=== PATIENT | female | born 2000 | race Two or more races ===

== ENCOUNTER 2023-01-20 13:30 | Outpatient (OUT) | payer OTHER, SELFPAY ==
--- NOTE | 2023-01-20 14:16 | XR_ITS ---
[address] [address] Patient Name: CARRIE JAMA MRN: [id number] date: 2000 Sex: F Assigned Patient Location: [facility] Current Patient Location: [facility] Accession/Order Number: [id number] Exam Date: 01/20/2023 14:20 Report Date: 01/20/2023 15:08 At the request of: ARIADNA BACON Procedure: XR chest 2V EXAM: XR chest 2V HISTORY: E CIGARETTE USS COMPARISON: 04/04/2020 TECHNIQUE: Upright PA and lateral chest x-ray FINDINGS: The heart is not enlarged and the vasculature is not distended. No acute infiltrate, effusion or pneumothorax is identified. The osseous structures are grossly intact. IMPRESSION: No acute infiltrate or evidence of cardiac decompensation. The overall appearance of the chest has not changed significantly. Electronically authenticated by: PATO HOPSON Date: 01/20/2023 15:08
--- NOTE | 2023-01-20 14:28 | P.GSHP_ITS ---
History of Present Illness History of Present Illness Chief complaint: REQUEST FOR STERILIZATION Narrative: Patient presents for preadmission testing accompanied by her son. The patient states she does not want anymore children and has requested sterilization. She denies any complaints today; she has no abdominal pain, nausea, vomiting, fever, cough, shortness of breath, or any other complaints. Review of Systems ROS Narrative REVIEW OF SYSTEMS: Negative except as stated in HPI, ten or more systems reviewed. Constitutional: No fever , chills, weakness ENT: No sore throat or epistaxis Cardiovascular: No edema, chest pain, palpitations, or activity intolerance Respiratory: No shortness of breath, cough, or wheezing Musculoskeletal: No joint pain or swelling Gastrointestinal: No abdominal pain, constipation, diarrhea, or vomiting Genitourinary: No dysuria or hematuria Neurological: No numbness, tingling, weakness, or headache Psychiatric: No mood changes PFSH PFS Medical History (Updated 01/20/23 @ 14:30 by Olivia Duque NP) Family History (Updated 01/20/23 @ 14:09 by Noelle Aponte) Other Asthma Family history of bleeding or clotting disorder Family history of diabetes mellitus Family history of heart disease Family history of stroke Hypercholesterolemia Social History (Updated 01/20/23 @ 14:05 by Noelle Aponte) Within the past year, how often did you have a drink containing alcohol: 2-4 times a month Within the past year, how many standard drinks containing alcohol did you have on a typical day: 1 or 2 Total score: 0 Score interpretation: A score less than 3 is consistent with normal alcohol consumption. 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 [employer] Highest level of school completed/degree received: high school graduate Meds Home Medications and Allergies Home Medications Medication Instructions Recorded Confirmed Type Bacillus coagulans 250 million cell PO 01/20/23 History cell chewable tablet (Digestive Advantage Probiotic Gummy) PNV 153-FA 400 mcg-om3 35 mg-dha tab PO 01/20/23 History 25 mg-epa 5 mg-fish oil chew tablet ( Gummies) Allergies Allergy/AdvReac Type Severity Reaction Status Date / Time No Known Drug Allergies Allergy Verified 01/20/23 13:58 Exam Narrative Exam Narrative: Constitutional: Awake, alert, comfortable, well-appearing, nontoxic, interactive, vital signs as charted Head: Normocephalic, atraumatic Eyes: Conjunctiva and lids normal to inspection, pupils normal ENT: Tympanic membranes pearly davidson, nonerythematous, noninjected, naris patent, posterior oropharynx clear, oral mucosa moist Neck: Supple, normal appearance, normal range of motion, no meningeal signs, no lymphadenopathy Respiratory: No respiratory distress, breath sounds clear Cardiovascular: Regular rate and rhythm, strong and regular heart tones Abdomen: Nontender, normal bowel sounds, soft, no CVA tenderness Musculoskeletal: Normal gait, no swelling or edema Skin: No rashes or induration, no lesions, only visible skin inspected Neuro: No neurological deficits, normal sensation Psychiatric: Oriented ?3, normal affect Assessment and Plan Assessment and Plan (1) Request for sterilization: Plan Bilateral laparoscopic salpingectomy scheduled with Dr. Holguin 01/24/2023.
== END 2023-01-20 13:31 ==
DX: Z01.810 Encounter for preprocedural cardiovascular examination (principal); Z30.2 Encounter for sterilization
CPT/HCPCS: 71046; G0463

== ENCOUNTER 2023-01-24 09:03 | Day surgery (SDC) | payer OTHER, SELFPAY ==
[2023-01-20 14:05] VITALS: BP 108/63; PULSE 76; RESP 16; TEMP 36.5; O2SAT 98; BMI 35.5
[2023-01-24] VITALS (13 sets, daily range): BP systolic 107–132; BP diastolic 54–99; PULSE 69–94; RESP 16–20; TEMP 36.1–36.3; O2SAT 99–100; BMI 35.5
[2023-01-24 09:13] LABS: Basophils Absolute Auto 0.1 10^3/uL (0.0-0.1); Basophils Percent Auto 0.7 % (0.2-2.0); Eosinophils Absolute Auto 0.2 10^3/uL (0.0-0.7); Eosinophils Percent Auto 2.2 % (0.9-7.0); Immature Granulocytes Abs Auto 0.02 10^3/uL (0.00-0.03); Immature Granulocytes Pct Auto 0.3 % (0.0-0.5); Lymphocytes Absolute Auto 2.7 10^3/uL (1.2-3.8); Lymphocytes Percent Auto 35.9 % (20.5-60.0); Mean Corpuscular Hemoglobin 19.7 pg (26.7-34.0); Mean Platelet Volume 9.1 fL (9.5-13.5); Monocytes Absolute Auto 0.4 10^3/uL (0.3-0.8); Neutrophils Absolute Auto 4.2 10^3/uL (1.4-6.5); Neutrophils Percent Auto 55.9 % (43.0-75.0); Platelet Count 563 10^3/uL (150-450); Red Blood Count 4.56 10^6/uL (4.20-5.40); Red Cell Distribution Width 19.6 % (11.0-15.0); White Blood Count 7.6 10^3/uL (4.0-11.0)
[2023-01-24 09:34] LABS: HCG Quantitative <1 mIU/mL
[2023-01-24] MEDS: LACTATED RINGER'S SOLUTION 1,000 ML 50 ML IV (09:46)
[2023-01-24] MEDS: MEPERIDINE HCL/PF 25 MG/ML VIAL IVP (13:06)
--- NOTE | 2023-01-24 13:36 | OP_ITS ---
OPERATION DATE: ??01/24/2023 PROCEDURE:? Robotic assisted laparoscopic bilateral salpingectomy. PREOPERATIVE DIAGNOSIS:? Desires permanent sterilization. POSTOPERATIVE DIAGNOSIS:? Desire permanent sterilization. ANESTHESIA:? General. SURGEON:? Aidan Holguin D.O. APPLICATION INTEGRATION ARCHITECT:? BAKARI Estrada URINE OUTPUT:? Yellow and clear. FINDINGS:? Normal appearing ovaries, uterus and tubes.? However, please note that uterus was slightly enlarged due to previous delivery. SPECIMEN:? Bilateral tubes. The patient was taken back to the OR where she was prepped and draped in the normal sterile fashion after being placed in the dorsal lithotomy position, after being placed under general anesthesia without difficulty. A wet sponge stick was placed into the patient's vagina. Attention was then turned to the patient's abdomen, where a scalpel was used to make a small infraumbilical incision. The S retractors were then used to dissect the underlying layers until the fascia could be seen. The fascia was then grasped with Raquel clamps and tented up. A knife was then used to make a small incision to the fascia. The muscle was identified, at that time two sutures of #0 Vicryl on a GI needle was then used and placed through the fascia. The peritoneum was then identified and entered bluntly. The 10-4 Lilibeth was then placed into the patient's abdomen. This was confirmed with direct visualization of the bowel, using the laparoscope. The patient's abdomen was then insufflated using approximately 4 liters of CO2 gas. Survey of the patient's abdomen demonstrated normal appearing ovaries, uterus and tubes. A second and third robotic lateral ports were placed, which 5 mm in size, was then placed laterally after incision was made in the skin under direct visualization. The robotic arms were then engaged. The patient's tube on the patient's right side was identified. The tube was then tented up using a grasper. The LigaSure was used to transect and coagulate the mesosalpinx from the fimbriated end to the insertion at the uterus; the tube was amputated and removed in its entirety.? Excellent hemostasis was noted.? This was performed on the contralateral side as well. The lateral ports were then removed under direct visualization with excellent hemostasis. The abdomen was desufflated. All instruments were removed from the patient's abdomen. The fascia was closed using the #0 Vicryl on GI needle. The skin was closed using 4-0 Vicryl subcuticularly. All instruments were removed from the patient's vagina as well. The patient was taken out of the dorsal lithotomy position and placed in the supine position and taken to recovery in stable condition. Sponge, lap and needle counts were correct x2.? MTDD
[2023-01-24] MEDS: LACTATED RINGER'S SOLUTION 1,000 ML 75 ML IV (13:42)
== END 2023-01-24 14:14 | disposition home or self-care (01) ==
PROVIDERS: Visit Provider Obstetrics & Gynecology
PROC: (CPT 58661; principal; 2023-01-24 10:20)
DX: Z30.2 Encounter for sterilization (principal); N85.2 Hypertrophy of uterus; F17.290 Nicotine dependence, other tobacco product, uncomplicated
CPT/HCPCS: 58661; 36415; 84702; 85025; 88302; J2704

== ENCOUNTER 2023-02-26 20:26 | Emergency (ER) | payer OTHER, SELFPAY ==
[2023-02-26 20:30] VITALS: BP 129/72; PULSE 85; RESP 16; TEMP 36.4; O2SAT 99; BMI 35.1
--- NOTE | 2023-02-26 20:40 | PC.NURSE ---
pt states one week ago her left ear began to feel muffled and has continued to get worse, now feels like she is unable to hear completely out of ear. yesterday right ear also began to feel muffled. has tried OTC ear drops without relief. denies any pain to ears just states they feel muffled . denies any drainage from ears. denies fevers at home.
--- NOTE | 2023-02-26 20:41 | ED_ITS ---
HPI - Ear Problem General Chief complaint: Ear Stated complaint: EARACHE Time Seen by Provider: 02/26/23 20:38 History of Present Illness HPI Narrative: 23 year old female presents to the ED for bilateral ear discomfort, L>R. Reports decreased hearing from her left ear as well. Denies fever, chills, injury, drainage. Denies sinus congestion drainage, sore throat. Rates her pain 4/10. Denies chance of . MD Complaint: Reports ear pain and decreased hearing; Denies ear discharge or foreign body Location: bilateral Related Data Home Medications Medication Instructions Recorded Confirmed Bacillus coagulans 250 million cell PO 01/20/23 cell chewable tablet (Digestive Advantage Probiotic Gummy) Previous Rx's Medication Instructions Recorded amoxicillin 500 mg capsule 500 mg PO Q12H 10 days #20 caps 02/26/23 carbamide peroxide 6.5 % ear drops 5 drp otic (ear) BID 4 days #15 mL 02/26/23 (Debrox) Allergies Allergy/AdvReac Type Severity Reaction Status Date / Time No Known Drug Allergies Allergy Verified 02/26/23 20:35 Review of Systems ROS Constitutional Denies: fever or chills Ears, nose, mouth, and throat Reports: ear pain and change in hearing; Denies: throat pain, neck pain, ear discharge, tinnitus, vertigo, nasal discharge or nasal congestion Cardiovascular Denies: chest pain Respiratory Denies: shortness of breath or cough PFSH PFSH Medical History (Updated 02/26/23 @ 20:45 by Barbara Pope) Family History (Updated 01/20/23 @ 14:09 by Noelle Clay) Other Asthma Family history of bleeding or clotting disorder Family history of diabetes mellitus Family history of heart disease Family history of stroke Hypercholesterolemia Social History (Updated 01/20/23 @ 14:05 by Noelle Clay) Within the past year, how often did you have a drink containing alcohol: 2-4 times a month Within the past year, how many standard drinks containing alcohol did you have on a typical day: 1 or 2 Total score: 0 Score interpretation: A score less than 3 is consistent with normal alcohol consumption. 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 Highest level of school completed/degree received: high school graduate Exam Constitutional Vital Signs, click to edit/add: Last Vital Signs Temp 97.5 F L 02/26/23 20:30 Pulse 85 02/26/23 20:30 Resp 16 02/26/23 20:30 BP 129/72 H 02/26/23 20:30 Pulse Ox 99 02/26/23 20:30 O2 Del Method Room Air 02/26/23 20:30 Common normals: no apparent distress and oriented x3 General appearance: cooperative; not in distress and not ill appearing [facility] Common normals: normocephalic Head and scalp: normal to inspection Face and sinus: face symmetric Nose: external nose normal External ear: external ears normal External auditory canal: other (Cerumen increased bilaterally. No swelling, drainage noted to canals.) Tympanic membrane: TM normal on the right and TM normal on the left (Long thematous, intact) Throat: posterior oropharynx normal Chest Chest: symmetrical chest wall rise Respiratory Common normals: normal respiratory effort Effort & inspection: able to speak in complete sentences and symmetric chest movement Cardio Common normals: regular rate Neuro Common normals: oriented x3 and CN's II-XII intact bilaterally Sensorium/orientation: awake and alert Course Vital Signs Vital signs: Vital Signs Temperature 97.5 F L 02/26/23 20:30 Pulse Rate 85 02/26/23 20:30 Respiratory Rate 16 02/26/23 20:30 Blood Pressure 129/72 H 02/26/23 20:30 Pulse Oximetry 99 02/26/23 20:30 Oxygen Delivery Method Room Air 02/26/23 20:30 Temperature 97.5 F L 02/26/23 20:30 Pulse Rate 85 02/26/23 20:30 Respiratory Rate 16 02/26/23 20:30 Blood Pressure 129/72 H 02/26/23 20:30 Pulse Oximetry 99 02/26/23 20:30 Oxygen Delivery Method Room Air 02/26/23 20:30 Medical Decision Making MDM Narrative Medical decision making narrative: Increased cerumen was noted bilaterally. Left TM was erythematous. Prescriptions were provided for amoxicillin and debrox. Follow up with pcp for a recheck, further evaluation and treatment. Medical Records Medical records reviewed: Yes I reviewed the patient's medical records Lab Data Lab results reviewed: Yes I reviewed the patient's lab results Discharge Plan Discharge Chief Complaint: Ear Clinical Impression: Cerumen impaction, Otitis media Patient Disposition: Home, Self-Care Time of Disposition Decision: 20:43 Condition: Good Mode of Transportation: Private Vehicle Prescriptions / Home Meds: New Debrox 6.5 % drops 5 drp otic (ear) BID 4 Days Qty: 15 0RF amoxicillin 500 mg capsule 500 mg PO Q12H 10 Days Qty: 20 0RF No Action Digestive Advantage Prob Gummy 250 million cell tablet,chewable PO Instructions: Carbamide Peroxide (Into the ear), Ear Infection (ED) Stand Alone Forms: Portal Instructions Referrals: Physician,Non-Staff, MD [Primary Care Provider] - 1 week Discharge Date/Time: 02/26/23 20:55
== END 2023-02-26 20:55 | disposition home or self-care (01) ==
PROVIDERS: Emergency Provider Emergency Medicine
DX: H66.93 Otitis media, unspecified, bilateral (principal); H61.23 Impacted cerumen, bilateral; F17.290 Nicotine dependence, other tobacco product, uncomplicated
CPT/HCPCS: 99282

== ENCOUNTER 2023-10-07 20:54 | Outpatient (REF) | payer OTHER, SELFPAY ==
[2023-10-11 16:10] LABS: Age Gdln ACOG Testing Note (.); IGP, rfx Aptima HPV ASCU Note (.)
== END 2023-10-07 20:55 | disposition home or self-care (01) ==
LOC: LAB 20:54
PROVIDERS: Visit Provider Physician Assistant
DX: Z01.419 Encounter for gynecological examination (general) (routine) without abnormal findings (principal)
CPT/HCPCS: G0145

== ENCOUNTER 2024-02-14 21:53 | Emergency (ER) | payer OTHER, SELFPAY ==
[2024-02-14] VITALS (10 sets, daily range): BP systolic 96–116; BP diastolic 59–65; PULSE 60; TEMP 36.6; O2SAT 86–100; BMI 33.5
--- OUTSIDE RECORDS SUMMARY | 2024-02-14 22:00 | XMS_ITS | CCD ---
Author Organization [facility] Care Team Providers Care Party Plan Sales Host/Hostess Name Role Phone Leslee Braswell Unavailable GayatriMachellemedardo Unavailable JORDI ., DR ROSENTHAL Admitting Unavailable FRENCH, LELSEE Primary Care Unavailable JORDI ., DR ROSENTHAL Attending Unavailable JORDI ., DR ROSENTHAL Consulting Unavailable MANISH ., JORGE Admitting Unavailable FRENCH, LESLEE Primary Care Unavailable MANISH ., JORGE Attending Unavailable MANISH ., JORGE Consulting Unavailable FRENCH, LESLEE Primary Care Unavailable JORDI ., DR ROSENTHAL Admitting Unavailable JORDI ., DR ROSENTHAL Attending Unavailable JORDI ., DR ROSENTHAL Consulting Unavailable JODRI ., DR ROSENTHAL Attending Unavailable JORDI ., DR ROSENTHAL Consulting Unavailable JORDI ., DR ROSENTHAL Admitting Unavailable FRENCH, LESLEE Primary Care Unavailable ZIEBER, DR ALAN Ospina Consulting Unavailable JORDI ., DR ROSENTHAL Attending Unavailable JORDI ., DR ROSENTHAL Consulting Unavailable JORDI ., DR ROSENTHAL Admitting Unavailable FRENCH, LESLEE Primary Care Unavailable JORDI ., DR ROSENTHAL Admitting Unavailable JORDI ., DR ROSENTHAL Attending Unavailable FRENCH, LESLEE Primary Care Unavailable JORDI ., DR ROSENTHAL Attending Unavailable JORDI ., DR ROSENTHAL Admitting Unavailable FRENCH, LESLEE Primary Care Unavailable JORDI ., DR ROSENTHAL Consulting Unavailable PHILLIP CEDENO Admitting Unavailable FRENCH, LESLEE Primary Care Unavailable PHILLIP CEDENO Attending Unavailable PHILLIP CEDENO Consulting Unavailable JORDI ., DR ROSENTHAL Admitting Unavailable JORDI ., DR ROSENTHAL Attending Unavailable JORDI ., DR ROSENTHAL Consulting Unavailable FRENCH, LESLEE Primary Care Unavailable HARSHA MARVIN Consulting Unavailable ABIGAIL GARAY Consulting Unavailable JORDI ., DR ROSENTHAL Procedure Practitioner Unavail able JORDI ., DR ROSENTHAL Attending Unavailable JORDI ., DR ROSENTHAL Ad[facility] JORDI ., DR ROSENTHAL Consulting Unavailable JORDI ., DR ROSENTHAL Admitting Unavailable JORDI ., DR ROSENTHAL Attending [facility] Unavailable JORDI ., DR ROSENTHAL Consulting Unavailable JORDI ., DR ROSENTHAL Admitting Unavailable [facility] Primary Care Unavailable JORDI ., DR ROSENTHAL Attending Unavailable JORDI ., DR ROSENTHAL Consulting Unavailable ZIEBER, DR ALAN Ospina Consulting Unavailable JORDI ., DR ROSENTHAL Admitting [facility]available JORDI ., DR ROSENTHAL Attending Unavailable JORDI ., DR ROSENTHAL Consulting Unavailable ZIEBER, DR ALAN Ospina Consulting Unavailable SABI Crocker Attending Provider Erin Crocker Unavailable Erin Crocker Admitting Unavailable Erin Crocker Attending Unavailable ALIZA GALLAGHER Referring Unavail able FRANCISCA PANDA Primary Care Unavailable Medications Current Medications Medication Drug Class(es) Dates Sig (Normalized) Sig (Original) ondansetron 4 mg oral tablet (5 sources) Serotonin-3 Receptor Antagonist Start: 02-05-2023 take 1 tablet by mouth three times daily as needed Zofran 4 MG 1 tablet Orally tid prn Jan, Active Zofran Not-Boy g Zofran Active triamcinolone acetonide 1 mg/ml topical cream (1 source) Corticosteroid Start: 04-06-2022 Triamcinolone Acetonide 0.1 % 1 application to affected area Externally Twice a day for 7 days Mar, Active Completed/Discontinued Medications Medication Drug Class(es) Dates Sig (Normalized) Sig (Original) ferrous sulfate (6 sources) Start: 06-21-2021 take 1 tablet by mouth every twenty-four hours Ferrous Sulfate 325 (65 Fe) MG 1 tablet Orally Once a day for 30 day(s) Jun, Not-Taking Start: 06-21-2021 take 1 tablet by lexii th once daily Ferrous Sulfate 325 (65 Fe) MG 1 tablet Orally Once a day for 30 day(s) Jun, Not-Taking Magnesium Oxide (3 sources) Magnesium Oxide Not-Taking Magnesium Oxide Active tobramycin 3 mg/ml ophthalmic solution (3 sources) Aminoglycoside Antibacterial Start: 06-06-2022 take 2 drop(s) into the eye(s) three times daily Tobramycin 0.3 % 2 drop into affected eye Ophthalmic tid for 5 days May, Not-Taking Problems Active Problems Problem Classification Problem Date Documented Date Episodic/Chronic Contraceptive and procreative management (1 source) Tubal ligation status; Translations: [Tubal ligation status] Onset: 01-16-2024 Episodic Deficiency and other anemia (6 sources) Microcytic anemia; Translations: [Iron deficiency anemia, unspecified] Episodic Headache; including migraine (1 source) Headache; including migraine; Translations: [Headache, unspecified] Onset: 01-16-2024 Immunizations and screening for infectious disease (6 sources) Contact with and (suspected) exposure to other viral communicable diseases; Translations: [Encounter for screening for human papillomavirus (HPV)] Onset: 09-05-2022 Episodic Malaise and fatigue (1 source) Chronic fatigue, unspecified; Translations: [Chronic fatigue, unspecified] Onset: 01-16-2024 Chronic Menstrual disorders (5 sources) Irregular menstruation, unspecified; Translations: [Excessive and frequent menstruation with irregular cycle] Onset: 05-13-2022 Chronic Nausea and vomiting (5 sources) Nausea with vomiting, unspecified; Translations: [Nausea] Onset: 05-30-2022 Episodic OB-related trauma to perineum and vulva (3 sources) First degree perineal laceration during delivery; Translations: [FIRST DEG PERINEAL LAC DUR DELIV] Onset: 12-02-2022 Episodic Other aftercare (1 source) Other group home (current) drug therapy; Translations: [OTH CERAMIC DESIGN ENGINEER CURRENT DRUG THERAPY] Onset: 12-12-2022 Episodic Other nutritional; endocrine; and metabolic disorders (1 source) Other obesity due to excess calories; Translations: [Other obesity due to excess calories] Onset: 01-16-2024 Chronic Other nutritional; endocrine; and metabolic disorders (1 source) Body mass index (BMI) 34.0-34.9, adult; Translations: [Body mass index (BMI) 34.0-34.9, adult] Onset: 01-16-2024 Chronic Other and delivery including normal (18 sources) Single live ; Translations: [ state, incidental] Onset: 04-26-2022 Episodic Other screening for suspected conditions (not mental disorders or infectious disease) (16 sources) Encounter for screening for Streptococcus B; Translations: [Encounter for screening for malignant neoplasm of cervix] Onset: 05-13-2022 Episodic Other upper respiratory infections (1 source) Acute upper respiratory infection, unspecified Episodic Residual codes; unclassified (1 source) 39 weeks gestation of ; Translations: [39 WEEKS GESTATION OF ] Onset: 12-12-2022 Episodic Viral infection (1 source) Viral infection, unspecified Episodic Past or Other Problems Problem Classification Problem Date Documented Date Episodic/Chronic Allergic reactions (1 source) Urticaria, unspecified Onset: 04-06-2022 Resolved: 04-06-2022 Episodic Deficiency and other anemia (1 source) Iron deficiency anemia, unspecified Onset: 06-21-2021 Resolved: 06-21-2021 Episodic Genitourinary symptoms and ill-defined conditions (4 sources) Hematuria, unspecified; Translations: [HEMATURIA UNSPECIFIED] Onset: 07-08-2022 Episodic Other aftercare (1 source) Encounter for follow-up examination after completed treatment for conditions other than malignant neoplasm Onset: 06-21-2021 Resolved: 06-21-2021 Episodic Other complications of (1 source) Unspecified infection of urinary tract in , first trimester; Translations: [UNS INF URINARY TRACT PREG 1ST TRI] Onset: 06-03-2022 Episodic Other female genital disorders (1 source) Other specified noninflammatory disorders of vagina; Translations: [OTH SPEC NONINFLAMMATORY D/O VAGINA] Onset: 09-05-2022 Episodic Residual codes; unclassified (1 source) 12 weeks gestation of ; Translations: [12 WEEKS GESTATION OF ] Onset: 06-03-2022 Episodic Unclassified (1 source) Contact with and (suspected) exposure to covid-19 Z20.822 Urinary tract infections (1 source) Urinary tract infection, site not specified; Translations: [UTI SITE NOT SPECIFIED] Onset: 06-03-2022 Episodic Results Test Name Value Interpretation Reference Range Facility CBC AND AUTO DIFFon 06-07-20 24 ABSOLUTE BASOPHIL 0.0 X10E9/L Normal 0.0-0.2 [facility] Comment on above: Performed By: #### C BCA, TSHR, CMP, 16641-8, 4-8, 9, 70837-9 #### [facility] ([id number]) [address], [address] [place] [address] ABSOLUTE NEUTROPHIL 3.6 X10E9/L Normal 1.5-6.6 [facility] Comment on above: Performed By: #### C BCA, TSHR, CMP, 66593-2, 8, 2132-04, 45241-9 #### [facility] ([id number]) [address], [address] [place] [address] Basophils/100 WBC (Bld) 0.6 % Normal [facility] Comment on above: Performed By: #### C BCA, TSHR, CMP, 19989-6, 8, 2132-04, 29012-4 #### [facility] ([id number]) [address], [facility] [address] [place] [address] Eosinophils (Bld) [#/Vol] 0.1 10*3/uL Normal 0.0-0.4 [facility] Comment on above: Performed By: #### C BCA, TSHR, CMP, 29678-8, 8, 2132-04, 52939-4 #### [facility] ([id number]) [address], [facility] [address] [place] [address] Eosinophils/100 WBC (Bld) 1.2 % Normal [facility] Comment on above: Performed By: #### C BCA, TSHR, CMP, 98055-1, 2283-8, 9, 47375-6 #### [facility] ([id number]) [address], [facility] [address] [place] [address] Erythrocyte distribution width (RBC) [Ratio] 17.7 % High 11.5-15.0 [facility] Comment on above: Performed By: #### C BCA, TSHR, CMP, 19494-8, 2283-8, 9, 79095-8 #### [facility] ([id number]) [address], [address] [place] [address] Hematocrit (Bld) [Volume fraction] 36.3 % Normal 35-47 [facility] Comment on above: Performed By: #### C BCA, TSHR, CMP, 78041-7, 8, 9, 69241-9 #### [facility] ([id number]) [address], [address] [place] [address] Hemoglobin (Bld) [Mass/Vol] 11.5 g/dL Low 11.7-15.5 [facility] Comment on above: Performed By: #### C BCA, TSHR, CMP, 27205-6, 8, 2132-04, 71291-5 #### [facility] ([id number]) [address], [address] [place] [address] Lymphocytes (Bld) [#/Vol] 1.2 10*3/uL Normal 1.0-3.5 [facility] Comment on above: Performed By: #### C BCA, TSHR, CMP, 03734-6, 8, 2132-04, 15950-9 #### [facility] ([id number]) [address], [address] [place] [address] Lymphocytes/100 WBC (Bld) 22.4 % Normal [facility] Comment on above: Performed By: #### C BCA, TSHR, CMP, 04368-2, 8, 9, 65359-8 #### [facility] ([id number]) [address], [address] [place] [address] MCH (RBC) [Entitic mass] 23.6 pg Low 27-34 [facility] Comment on above: Performed By: #### C BCA, TSHR, CMP, 21441-1, 2283-8, 2132-04, 40454-8 #### [facility] ([id number]) [address], [address] [place] [address] MCHC (RBC) [Mass/Vol] 31.7 g/dL Low 32-36 [facility] Comment on above: Performed By: #### C BCA, TSHR, CMP, 56005-4, 2283-8, 2132-04, 96512-7 #### [facility] ([id number]) [address], [address] [place] [address] MCV (RBC) [Entitic vol] 75 fL Low 80-100 [facility] Comment on above: Performed By: #### C BCA, TSHR, CMP, 65335-5, 2284-03, 2132-04, 66342-7 #### [facility] ([id number]) [address], [address] [place] [address] Monocytes (Bld) [#/Vol] 0.5 10*3/uL Normal 0-0.9 [facility] Comment on above: Performed By: #### C BCA, TSHR, CMP, 14302-5, 2284-03, 2132-04, 53685-5 #### [facility] ([id number]) [address], [address] [place] [address] Monocytes/100 WBC (Bld) 8.8 % Normal [facility] Comment on above: Performed By: #### C BCA, TSHR, CMP, 10682-3, 2284-03, 2132-04, 46073-2 #### [facility] ([id number]) [address], [address] [place] [address] Neutrophils/100 WBC (Bld) 67.0 % Normal [facility] Comment on above: Performed By: #### C BCA, TSHR, CMP, 50571-1, 2284-8, 2131-9, 47155-8 #### [facility] ([id number]) [address], [address] [place] [address] Platelet mean volume (Bld) [Entitic vol] 8.7 fL Normal 7-12 [facility] Comment on above: Performed By: #### C BCA, TSHR, CMP, 30366-3, 2284-8, 2131-9, 74598-8 #### [facility] ([id number]) [address] [address] [place] [address] Platelets (Bld) [#/Vol] 396 10*3/uL Normal 150-450 [facility] Comment on above: Performed By: #### C BCA, TSHR, CMP, 88330-3, 4-8, 2131-9, 52091-3 #### [facility] ([id number]) [address], [address] [place] [address] RBC COUNT 4.87 X10E12/L Normal 3.80-5.20 [facility] Comment on above: Performed By: #### C BCA, TSHR, CMP, 10873-6, 2284-8, 2131-9, 08921-9 #### [facility] ([id number]) [address], [address] [place] [address] WBC (Bld) [#/Vol] 5.3 10*3/uL Normal 4.0-11.0 [facility] Comment on above: Performed By: #### C BCA, TSHR, CMP, 38696-4, 2284-8, 2131-9, 80475-0 #### [facility] ([id number]) [address] [place] [address] COMPREHENSIVE METABOLIC PANE Basilio 01-16-2024 Albumin [Mass/Vol] 4.2 g/dL Normal 3.2-5.3 [facility] Comment on above: Performed By: #### C BCA, TSHR, CMP, 48872-5, 2284-8, 2131-9, 51817-7 #### [facility] ([id number]) [address], [address] [place] [address] ALP [Catalytic activity/Vol] 84 U/L Normal 39-130 [facility] Comment on above: Performed By: #### C BCA, TSHR, CMP, 48146-0, 228-8, 9, 08253-4 #### [facility] ([id number]) [address], [address] [place] [address] ALT [Catalytic activity/Vol] 25 U/L Normal 0-31 [facility] Comment on above: Performed By: #### C BCA, TSHR, CMP, 49345-7, 8, 9, 91208-3 #### [facility] ([id number]) [address], [address] [place] [address] Anion gap [Moles/Vol] 8 mmol/L Normal 5-15 [facility] Comment on above: Performed By: #### C BCA, TSHR, CMP, 69511-7, 2283-8, 9, 77652-4 #### [facility] ([id number]) [address], [address] [place] [address] AST [Catalytic activity/Vol] 21 U/L Normal 0-41 [facility] Comment on above: Performed By: #### C BCA, TSHR, CMP, 63729-4, 2284-8, 2131-9, 79806-0 #### [facility] ([id number]) [address], [address] [place] [address] Bilirubin [Mass/Vol] 0.7 mg/dL Normal 0.3-1.2 [facility] Comment on above: Performed By: #### C BCA, TSHR, CMP, 15772-5, 2284-8, 2131-9, 03919-5 #### [facility] ([id number]) [address], [address] [place] [address] Calcium [Mass/Vol] 9.1 mg/dL Normal 8.5-10.5 [facility] Comment on above: Performed By: #### C BCA, TSHR, CMP, 44229-0, 2284-8, 2131-9, 72405-0 #### [facility] ([id number]) [address], [address] [place] [address] Chloride [Moles/Vol] 105 mmol/L Normal 98-109 [facility] Comment on above: Performed By: #### C BCA, TSHR, CMP, 85345-7, 4-8, 2131-9, 81407-9 #### [facility] ([id number]) [address], [address] [place] [address] CO2 [Moles/Vol] 25 mmol/L Normal 22-32 [facility] Comment on above: Performed By: #### C BCA, TSHR, CMP, 34601-3, 2284-8, 2131-9, 37727-7 #### [facility] ([id number]) [address], [facility] [address] [place] [address] Creatinine [Mass/Vol] 0.61 mg/dL Normal 0.40-1.00 [facility] Comment on above: Result Comment: METH OD TRACEABLE TO IDMS STANDARD Performed By: #### C BCA, TSHR, CMP, 50261-1, 2284-8, 2131-9, 89615-6 #### [facility] ([id number]) [address], [address] [place] [address] eGFR (CKD-EPI) NON-RACE DEPENDENT >90 Normal >59 [facility] Comment on above: Result Comment: Reported eGFR is based on the CKD-EPI 2020 equation that does not use a race coefficient. Performed By: #### C BCA, TSHR, CMP, 43488-2, 2284-8, 9, 40246-5 #### [facility] ([id number]) [address], [address] [place] [address] Glucose [Mass/Vol] 87 mg/dL Normal 65-99 [facility] Comment on above: Performed By: #### C BCA, TSHR, CMP, 71249-2, 2284-8, 9, 22818-2 #### [facility] ([id number]) [address], [address] [place] [address] Potassium [Moles/Vol] 3.9 mmol/L Normal 3.5-5.0 [facility] Comment on above: Performed By: #### C BCA, TSHR, CMP, 47565-5, 8, 2132-04, 69176-4 #### [facility] ([id number]) [address], [address] [place] [address] Protein [Mass/Vol] 7.3 g/dL Normal 6.0-8.0 [facility] Comment on above: Performed By: #### C BCA, TSHR, CMP, 98603-5, 2283-8, 2132-04, 67091-0 #### [facility] ([id number]) [address], [address] [place] [address] Sodium [Moles/Vol] 138 mmol/L Normal 134-146 [facility] Comment on above: Performed By: #### C BCA, TSHR, CMP, 49594-5, 228-8, 9, 57114-2 #### [facility] ([id number]) [address], [address] [place] [address] Urea nitrogen [Mass/Vol] 15 mg/dL Normal 5-23 [facility] Comment on above: Performed By: #### C BCA, TSHR, CMP, 73705-3, 2284-8, 9, 78996-8 #### [facility] ([id number]) [address], [address] [place] [address] Folate [Mass/Vol]on 01-16-20 24 FOLIC ACID 7.5 ng/mL Normal >5.8 [facility] Comment on above: Result Comment: NEW REFERENCE RANGE Performed By: #### C BCA, TSHR, CMP, 56556-7, 2284-8, 9, 49106-0 #### [facility] ([id number]) [address] [facility], [address] [place] [address] Lipid 1996 panelon 4 Cholesterol [Mass/Vol] 173 mg/dL Normal 150-200 [facility] Comment on above: Performed By: #### C BCA, TSHR, CMP, 39275-5, 4-8, 9, 90919-0 #### [facility] ([id number]) [address] [facility], [address] [place] [address] Cholesterol in HDL [Mass/Vol] 64 mg/dL Normal >39 [facility] Comment on above: Result Comment: HDL <40 mg/dL - High Risk HDL > or = 40mg/dL- Desirable HDL >60 mg/dL - Negative Risk Performed By: #### C BCA, TSHR, CMP, 57821-2, 2284-8, 2131-9, 37625-9 #### [facility] ([id number]) [address], [address] [place] [address] Cholesterol in LDL [Mass/Vol] 94 mg/dL Normal <130 [facility] Comment on above: Result Comment: LDL <100 mg/dL - Desirable LDL >160 mg/dL - High Risk Performed By: #### C BCA, TSHR, CMP, 42652-5, 2284-8, 2131-9, 98370-1 #### [facility] ([id number]) [address], [address] [place] [address] Cholesterol in VLDL [Mass/Vol] 15 mg/dL Normal 0-30 [facility] Comment on above: Performed By: #### C BCA, TSHR, CMP, 65718-3, 2284-8, 2131-9, 48188-3 #### [facility] ([id number]) [address], [address] [place] [address] CHOLESTEROL:HDL 2.7 Normal 1.0-5.0 [facility] Comment on above: Performed By: #### C BCA, TSHR, CMP, 58660-3, 2283-8, 9, 80641-4 #### [facility] ([id number]) [address], [address] [place] [address] Triglyceride [Mass/Vol] 74 mg/dL Normal 27-150 [facility] Comment on above: Performed By: #### C BCA, TSHR, CMP, 69772-5, 2284-8, 2131-9, 86125-7 #### [facility] ([id number]) [address], [address] [place] [address] TSH WITH REFLEXon 01-16-2024 TSH 0.87 uIU/mL Normal 0.49-4.67 [facility] Comment on above: Performed By: #### C BCA, TSHR, CMP, 02078-0, 2284-8, 2131-9, 33309-4 #### [facility] ([id number]) [address], [address] [place] [address] VITAMIN B12on 01-16-2024 Cobalamin (Vitamin B12) [Mass/Vol] 416 pg/mL Normal 180-914 [facility] Comment on above: Performed By: #### C BCA, TSHR, CMP, 81526-6, 2284-8, 2132-9, 46754-5 #### [facility] ([id number]) [address] [place] [address], [address] [place] [address] Vitamin D+Metabolites [Mass/ Vol]on 01-16-2024 VITAMIN D 25 HYD TOT 16.6 ng/mL Low 30-100 [facility] Comment on above: Result Comment: Vitamin D status 25 [place] Vitamin D Deficiency <20 ng/mL Insufficiency 20-29 ng/mL Sufficiency 30-100 ng/mL Toxicity >100 ng/mL NOTE: A pediatric reference range has not been established by the switchboard operator receptionist of this kit. The [place] [employer] recommends a Vitamin D level of = or >20ng/mL in infants and children. Performed By: #### C BCA, TSHR, CMP, 33159-5, 2284-8, 2132-9, 71401-8 #### [facility] ([id number]) [address] [place] [address], [address] [place] [address] COVID + FLU Quick Testingon 02-05-2023 SARS-CoV-2 (COVID-19) RNA ANNI+probe Ql (Unsp spec) Negative [employer] Other COVID + FLU Quick Testing Negative [employer] Other Test, Urineon 01-10 Beta HCG ( test) Ql (U) Negative [employer] Other Urinalysis - AUTOMATEDon Appearance (U) clear [employer] Other Bilirubin Ql (U) Negative [facility] Other Color (U) yellow [employer] Other Glucose Ql (U) Negative [employer] Other Hemoglobin Ql (U) Negative [employer] Other Ketones Ql (U) Negative [employer] Other Leukocyte esterase Test strip Ql (U) large [employer] Other Nitrite Ql (U) Negative [employer] Other pH (U) 7.0 [pH] [employer] Other Protein Ql (U) Negative [employer] Other Specific gravity (U) [Rel density] 1.015 [employer] Other Urobilinogen (U) [Mass/Vol] 0.2 mg/dL [facility] Other Urinalysis - AUTOMATED [employer] Other Urine Cultureon 02-05-2023 Bacteria identified Cx Nom (U) Reason for Exam Nausea Urine <9,000 colonies/ml mixed bacterial skin contaminants 2 Days PERFORMED BY: [place] [address] PATHOLOGIST JUNIOR SOFTWARE ENGINEER CAITLIN MADDEN M.D. Normal [facility] Comment on above: Performed By: #### C UU #### [facility] [address] [place] [address] [place] ANTIBODY ID PANELon 12-09-19 ANTIBODY ID PANEL Antibody ID Anti-c Normal [facility] Comment on above: Performed By: #### H BSANS #### [facility] [address] [place] [address] Dr. Kimberly Bocanegra CBC AUTO DIFFon 12-03-2022 BASO # 0.1 103/ul Normal 0.0-0.1 [facility] Comment on above: Performed By: #### R UBIGG #### [facility] [address] [place] [address] Dr. Kimberly Bocanegra Basophils/100 WBC (Bld) 0.3 % Normal 0.2-2.0 [facility] Comment on above: Performed By: #### R UBIGG #### [facility] [address] [place] [address] Dr. Kimberly Bocanegra EO # 0.1 103/ul Normal 0.0-0.7 [facility] Comment on above: Performed By: #### R UBIGG #### [facility] [address] [place] [address] Dr. Kimberly Bocanegra Eosinophils/100 WBC (Bld) 0.6 % Critically low 0.9-7.0 [facility] Comment on above: Performed By: #### R UBIGG #### [facility] [address] [place] [address] Dr. Kimberly Bocanegra Erythrocyte distribution width (RBC) [Ratio] 16.4 % Critically high 11.0-15.0 [facility] Comment on above: Performed By: #### R UBIGG #### [facility] [address] [place] [address] Dr. Kimberly Bocanegra Hematocrit (Bld) [Volume fraction] 24.5 % Critically low 36.0-48.0 [facility] Comment on above: Performed By: #### R UBIGG #### [facility] [address] [place] [address] Dr. Kimberly Bocanegra Hemoglobin (Bld) [Mass/Vol] 7.3 g/dL Critically low 12.0-16.0 [facility] Comment on above: Performed By: #### R UBIGG #### [facility] [address] [place] [address] Dr. Kimberly Bocanegra IG # 0.05 10e3/ul Critically high 0.00-0.03 [facility] Comment on above: Performed By: #### R UBIGG #### [facility] [address] [place] [address] Dr. Kimberly Bocanegra IG % 0.3 % Normal 0.0-0.5 [facility] Comment on above: Performed By: #### R UBIGG #### [facility] [address] [address] [address] Kimberly Bocanegra LYMPH # 1.9 103/ul Normal 1.2-3.8 [facility] Comment on above: Performed By: #### R UBIGG #### [facility] [address] [place] [address] Dr. Kimberly Bocanegra Lymphocytes/100 WBC (Bld) 13.2 % Critically low 20.5-60.0 [facility] Comment on above: Performed By: #### R UBIGG #### [facility] [address] [place] [address] Dr. Kimberly Bocanegra MANUAL DIFF REQ NO Normal [facility] Comment on above: Performed By: #### R UBIGG #### [facility] [address] [place] [address] Dr. Kimberly Bocanegra MCH (RBC) [Entitic mass] 21.3 pg Critically low 26.7-34.0 [facility] Comment on above: Performed By: #### R UBIGG #### [facility] [address] [place] [address] Dr. Kimberly Bocanegra MCHC (RBC) [Mass/Vol] 29.8 g/dL Critically low 29.9-35.2 [facility] Comment on above: Performed By: #### R UBIGG #### [facility] [address] [place] [address] Dr. Kimberly Bocanegra MCV (RBC) [Entitic vol] 71.4 fL Critically low 81.0-99.0 [facility] Comment on above: Performed By: #### R UBIGG #### [facility] [address] [place] [address] Dr. Kimberly Bocanegra MONO # 1.0 103/ul Critically high 0.3-0.8 [facility] Comment on above: Performed By: #### R UBIGG #### [facility] [address] [place] [address] Dr. Kimberly Bocanegra Monocytes/100 WBC (Bld) 6.7 % Normal 1.7-12.0 [facility] Comment on above: Performed By: #### R UBIGG #### [facility] [address] [address] [address] Kimberly Bocanegra NEUT # 11.3 103/ul Critically high 1.4-6.5 [facility] Comment on above: Performed By: #### R UBIGG #### [facility] [address] [address] [address] Kimberly Bocanegra Neutrophils/100 WBC (Bld) 78.9 % Critically high 43.0-75.0 [facility] Comment on above: Performed By: #### R UBIGG #### [facility] [address] [address] [address] Kimberly Bocanegra Platelet mean volume (Bld) [Entitic vol] 10.0 fL Normal 9.5-13.5 [facility] Comment on above: Performed By: #### R UBIGG #### [facility] [address] [place] [address] Dr. Kimberly Bocanegra PLT 348 103/ul Normal 150-450 [facility] Comment on above: Performed By: #### R UBIGG #### [facility] [address] [place] [address] Dr. Kimberly Bocanegra RBC 3.43 106/ul Critically low 4.20-5.40 [facility] Comment on above: Performed By: #### R UBIGG #### [facility] [address] [place] [address] Dr. Kimberly Bocanegra WBC 14.3 103/ul Critically high 4.0-11.0 [facility] Comment on above: Performed By: #### R UBIGG #### [facility] [address] [place] [address] Dr. Kimberly Bocanegra CBC AUTO DIFFon 12-02-2022 BASO # 0.0 103/ul Normal 0.0-0.1 [facility] Comment on above: Performed By: #### R UBIGG #### [facility] [address] [place] [address] Dr. Kimberly Bocanegra Basophils/100 WBC (Bld) 0.5 % Normal 0.2-2.0 [facility] Comment on above: Performed By: #### R UBIGG #### [facility] [address] [address] [address] Kimberly Bocanegra EO # 0.1 103/ul Normal 0.0-0.7 [facility] Comment on above: Performed By: #### R UBIGG #### [facility] [address] [address] [address] Kimberly Bocanegra Eosinophils/100 WBC (Bld) 1.3 % Normal 0.9-7.0 [facility] Comment on above: Performed By: #### R UBIGG #### [facility] [address] [address] [address] Kimberly Bocanegra Erythrocyte distribution width (RBC) [Ratio] 16.3 % Critically high 11.0-15.0 [facility] Comment on above: Performed By: #### R UBIGG #### [facility] [address] [place] [address] Dr. Kimberly Bocanegra Hematocrit (Bld) [Volume fraction] 29.9 % Critically low 36.0-48.0 [facility] Comment on above: Performed By: #### R UBIGG #### [facility] [address] [place] [address] Dr. Kimberly Bocanegra Hemoglobin (Bld) [Mass/Vol] 9.1 g/dL Critically low 12.0-16.0 [facility] Comment on above: Performed By: #### R UBIGG #### [facility] [address] [place] [address] Dr. Kimberly Bocanegra IG # 0.05 10e3/ul Critically high 0.00-0.03 [facility] Comment on above: Performed By: #### R UBIGG #### [facility] [address] [place] [address] Dr. Kimberly Bocanegra IG % 0.6 % Critically high 0.0-0.5 [facility] Comment on above: Performed By: #### R UBIGG #### [facility] [address] [place] [address] Dr. Kimberly Bocanegra LYMPH # 3.0 103/ul Normal 1.2-3.8 [facility] Comment on above: Performed By: #### R UBIGG #### [facility] [address] [place] [address] Dr. Kimberly Bocanegra Lymphocytes/100 WBC (Bld) 33.8 % Normal 20.5-60.0 [facility] Comment on above: Performed By: #### R UBIGG #### [facility] [address] [place] [address] Dr. Kimberly Bocanegra MANUAL DIFF REQ NO Normal [facility] Comment on above: Performed By: #### R UBIGG #### [facility] [address] [place] [address] Dr. Kimberly Bocanegra MCH (RBC) [Entitic mass] 21.0 pg Critically low 26.7-34.0 [facility] Comment on above: Performed By: #### R UBIGG #### [facility] [address] [place] [address] Dr. Kimberly Bocanegra MCHC (RBC) [Mass/Vol] 30.4 g/dL Normal 29.9-35.2 [facility] Comment on above: Performed By: #### R UBIGG #### [facility] [address] [place] [address] Dr. Kimberly Bocanegra MCV (RBC) [Entitic vol] 69.1 fL Critically low 81.0-99.0 [facility] Comment on above: Performed By: #### R UBIGG #### [facility] [address] [place] [address] Dr. Kimberly Bocanegra MONO # 0.4 103/ul Normal 0.3-0.8 [facility] Comment on above: Performed By: #### R UBIGG #### [facility] [address] [place] [address] Dr. Kimberly Bocanegra Monocytes/100 WBC (Bld) 4.8 % Normal 1.7-12.0 [facility] Comment on above: Performed By: #### R UBIGG #### [facility] [address] [place] [address] Dr. Kimberly Bocanegra NEUT # 5.2 103/ul Normal 1.4-6.5 [facility] Comment on above: Performed By: #### R UBIGG #### [facility] [address] [address] [address] Kimberly Bocanegra Neutrophils/100 WBC (Bld) 59.0 % Normal 43.0-75.0 [facility] Comment on above: Performed By: #### R UBIGG #### [facility] [address] [address] [address] Kimberly Bocanegra Platelet mean volume (Bld) [Entitic vol] 10.4 fL Normal 9.5-13.5 [facility] Comment on above: Performed By: #### R UBIGG #### [facility] [address] [place] [address] Dr. Kimberly Bocanegra PLT 459 103/ul Critically high 150-450 [facility] Comment on above: Performed By: #### R UBIGG #### [facility] [address] [place] [address] Dr. Kimberly Bocanegra RBC 4.33 106/ul Normal 4.20-5.40 [facility] Comment on above: Performed By: #### R UBIGG #### [facility] [address] [place] [address] Dr. Kimberly Bocanegra WBC 8.7 103/ul Normal 4.0-11.0 [facility] Comment on above: Performed By: #### R UBIGG #### [facility] [address] [place] [address] Dr. Kimberly Bocanegra DIRECT COOMBSon 12-02-2022 DIRECT MILES Negative Normal [facility] Comment on above: Performed By: #### H BSANS #### [facility] [address] [place] [address] Dr. Kimberly Bocanegra DRUG SCREEN RAPID (URINE)on 12-02-2022 AMP Negative Normal NEGATIVE [facility] Comment on above: Performed By: #### H BSANS #### [facility] [address] [place] [address] Dr. Kimberly Bocanegra BAR Negative Normal NEGATIVE [facility] Comment on above: Performed By: #### H BSANS #### [facility] [address] [place] [address] Dr. Kimberly Bocanegra BUP Negative Normal NEGATIVE [facility] Comment on above: Performed By: #### H BSANS #### [facility] [address] [place] [address] Dr. Kimberly Bocanegra BZO Negative Normal NEGATIVE [facility] Comment on above: Performed By: #### H BSANS #### [facility] [address] [place] [address] Dr. Kimberly Bocanegra TONO Negative Normal NEGATIVE [facility] Comment on above: Performed By: #### H BSANS #### [facility] [address] [place] [address] Dr. Kimberly Bocanegra CUT-OFFS SEE BELOW Normal [facility] Comment on above: Result Comment: AMP (Amphetamine): 500ng/mL, BAR (Barbituates): 200 ng/mL, BZO (Benzodiazepines): 150 ng/mL, BUP (Buprenorphine): 10 ng/mL, TONO (Cocaine): 150 ng/mL, mAMP (Methamphetamine): 500 ng/mL, MTD (Methadone): 200 ng/mL, OPI (Opiates): 100 ng/mL, OXY (Oxycodone): 100 ng/mL, PCP (Phencyclidine): 25 ng/mL, PPX (Propoxyphene): 300 ng/mL, THC (Cannabinoids): 50 ng/mL, TCA (Trycyclic Antidepressants): 300 ng/mL Performed By: #### H BSANS #### [facility] [address] [place] [address] Dr. Kimberly Bocanegra DRUG CUT HEADER DRUG CLASS TEST SYSTEM CUT-OFF CONCENTRATIONS ARE FOLLOWS: Normal [facility] Comment on above: Performed By: #### H BSANS #### [facility] [address] [place] [address] Dr. Kimberly Bocanegra mAMP Negative Normal NEGATIVE [facility] Comment on above: Performed By: #### H BSANS #### [facility] [address] [place] [address] Dr. Kimberly Bocanegra MTD Negative Normal NEGATIVE [facility] Comment on above: Performed By: #### H BSANS #### [facility] [address] [address] [address] Kimberly Bocanegra OPI Negative Normal NEGATIVE [facility] Comment on above: Performed By: #### H BSANS #### [facility] [address] [address] [address] Kimberly Bocanegra OXY Negative Normal NEGATIVE [facility] Comment on above: Performed By: #### H BSANS #### [facility] [address] [address] [address] Kimberly Bocanegra PCP Negative Normal NEGATIVE [facility] Comment on above: Performed By: #### H BSANS #### [facility] [address] [place] [address] Dr. Kimberly Bocanegra PPX Negative Normal NEGATIVE [facility] Comment on above: Performed By: #### H BSANS #### [facility] [address] [place] [address] Dr. Kimberly Bocanegra TCA Negative Normal NEGATIVE [facility] Comment on above: Performed By: #### H BSANS #### [facility] [address] [address] [address] Kimberly Bocanegra THC Negative Normal NEGATIVE [facility] Comment on above: Performed By: #### H BSANS #### [facility] [address] [place] [address] Dr. Kimberly Bocanegra TYPE AND SCREENon 12-02-2022 TYPE AND SCREEN Positive Normal [facility] Comment on above: Performed By: #### T NS #### [facility] [address] [place] [address] Dr. Kimberly Bocanegra GROUP B STREP CULTUREon 11-09 S. agalactiae Ag Ql (Unsp spec) Culture Observations: NEGATIVE FOR GROUP B STREPTOCOCCUS. Normal [facility] Comment on above: Performed By: #### H BSANS #### [facility] [address] [place] [address] Dr. Kimberly Bocanegra PAP ACOG PANEL 2: 21 to 29on 09-10-2022 . . Normal [facility] Comment on above: Performed By: #### R UBIGG #### [facility] [address] [place] [address] Dr. Kimberly Bocanegra Age Gdln ACOG Testing 21-29 [facility] Comment on above: Performed By: #### R UBIGG #### [facility] [address] [address] [address] Kimberly Bocanegra DIAGNOSIS: Comment [facility] Comment on above: Result Comment: NEGA TIVE FOR INTRAEPITHELIAL LESION OR MALIGNANCY. Performed By: #### R UBIGG #### [facility] [address] [address] [address] Kimberly Bocanegra Methodology: Comment [facility] Comment on above: Result Comment: This liquid based ThinPrep(R) pap test was screened with the use of an image guided system. Performed By: #### R UBIGG #### [facility] [address] [place] [address] Dr. Kimberly Bocanegra Note: Comment [facility] Comment on above: Result Comment: The Pap smear is a screening test designed to aid in the detection of premalignant and malignant conditions of the uterine cervix. It is not a diagnostic procedure and should not be used as the sole means of detecting cervical cancer. Both false-positive and false-negative reports do occur. . Performed By: #### R UBIGG #### [facility] [address] [place] [address] Dr. Kimberly Bocanegra Performed by: Comment Normal [facility] Comment on above: Result Comment: Dario Lopez Glass Or Mirror Inspector (ASCP) Performed By: #### R UBIGG #### [facility] [address] [place] [address] Dr. Kimberly Bocanegra Reflex Criteria: Comment [facility] Comment on above: Result Comment: The HPV DNA reflex criteria were not met with this specimen result therefore, no HPV testing was performed. . Performed By: #### R UBIGG #### [facility] [address] [place] [address] Dr. Kimberly Bocanegra Specimen adequacy: Comment Normal [facility] Comment on above: Result Comment: Sati sfactory for evaluation. No endocervical component is identified. Performed By: #### R UBIGG #### [facility] [address] [place] [address] Dr. Kimberly Bocanegra CHLAMYDIA/GONOCOCCUS ANNI (SW AB/URINE/PAPon 09-08-2022 Chlamydia trachomatis, ANNI Negative Normal Negative [facility] Comment on above: Performed By: #### B MP #### [facility] [address] [place] [address] Dr. Kimberly Bocanegra Neisseria gonorrhoeae, ANNI Negative Normal Negative [facility] Comment on above: Performed By: #### B MP #### [facility] [address] [place] [address] Dr. Kimberly Bocanegra VAGINITIS/VAGINOSIS DNA PROB George 09-06-2022 Linda species Negative Normal Negative [facility] Comment on above: Performed By: #### H BSANS #### [facility] [address] [place] [address] Dr. Kimberly Bocanegra Gardnerella vaginalis Negative Normal Negative [facility] Comment on above: Performed By: #### H BSANS #### [facility] [address] [place] [address] Dr. Kimberly Bocanegra Trichomonas vaginalis Negative Normal Negative [facility] Comment on above: Performed By: #### H BSANS #### [facility] [address] [place] [address] Dr. Kimberly Bocanegra CBC AUTO DIFFon 08-17-2022 BASO # 0.0 103/ul Normal 0.0-0.1 [facility] Comment on above: Performed By: #### H BSANS #### [facility] [address] [place] [address] Dr. Kimberly Bocanegra Basophils/100 WBC (Bld) 0.4 % Normal 0.2-2.0 [facility] Comment on above: Performed By: #### H BSANS #### [facility] [address] [place] [address] Dr. Kimberly Bocanegra EO # 0.1 103/ul Normal 0.0-0.7 [facility] Comment on above: Performed By: #### H BSANS #### [facility] [address] [place] [address] Dr. Kimberly Bocanegra Eosinophils/100 WBC (Bld) 1.0 % Normal 0.9-7.0 [facility] Comment on above: Performed By: #### H BSANS #### [facility] [address] [place] [address] Dr. Kimberly Bocanegra Erythrocyte distribution width (RBC) [Ratio] 13.4 % Normal 11.0-15.0 [facility] Comment on above: Performed By: #### H BSANS #### [facility] [address] [place] [address] Dr. Kimberly Bocanegra Hematocrit (Bld) [Volume fraction] 29.2 % Critically low 36.0-48.0 [facility] Comment on above: Performed By: #### H BSANS #### [facility] [address] [place] [address] Dr. Kimberly Bocanegra Hemoglobin (Bld) [Mass/Vol] 10.5 g/dL Critically low 12.0-16.0 [facility] Comment on above: Performed By: #### H BSANS #### [facility] [address] [place] [address] Dr. Kimberly Bocanegra IG # 0.05 10e3/ul Critically high 0.00-0.03 [facility] Comment on above: Performed By: #### H BSANS #### [facility] [address] [place] [address] Dr. Kimberly Bocanegra IG % 0.5 % Normal 0.0-0.5 [facility] Comment on above: Performed By: #### H BSANS #### [facility] [address] [place] [address] Dr. Kimberly Bocanegra LYMPH # 2.2 103/ul Normal 1.2-3.8 [facility] Comment on above: Performed By: #### H BSANS #### [facility] [address] [place] [address] Dr. Kimberly Bocanegra Lymphocytes/100 WBC (Bld) 23.1 % Normal 20.5-60.0 [facility] Comment on above: Performed By: #### H BSANS #### [facility] [address] [address] [address] Kimberly Bocanegra MANUAL DIFF REQ NO Normal [facility] Comment on above: Performed By: #### H BSANS #### [facility] [address] [address] [address] Kimberly Bocanegra MCH (RBC) [Entitic mass] 27.2 pg Normal 26.7-34.0 [facility] Comment on above: Performed By: #### H BSANS #### [facility] [address] [address] [address] Kimberly Bocanegra MCHC (RBC) [Mass/Vol] 36.0 g/dL Critically high 29.9-35.2 [facility] Comment on above: Performed By: #### H BSANS #### [facility] [address] [place] [address] Dr. Kimberly Bocanegra MCV (RBC) [Entitic vol] 75.6 fL Critically low 81.0-99.0 [facility] Comment on above: Performed By: #### H BSANS #### [facility] [address] [address] [address] Kimberly Bocanegra MONO # 0.7 103/ul Normal 0.3-0.8 [facility] Comment on above: Performed By: #### H BSANS #### [facility] [address] [address] [address] Kimberly Bocanegra Monocytes/100 WBC (Bld) 7.2 % Normal 1.7-12.0 [facility] Comment on above: Performed By: #### H BSANS #### [facility] [address] [address] [address] Kimberly Bocanegra NEUT # 6.3 103/ul Normal 1.4-6.5 [facility] Comment on above: Performed By: #### H BSANS #### [facility] [address] [address] [address] Kimberly Bocanegra Neutrophils/100 WBC (Bld) 67.8 % Normal 43.0-75.0 [facility] Comment on above: Performed By: #### H BSANS #### [facility] [address] [address] [address] Kimberly Bocanegra Platelet mean volume (Bld) [Entitic vol] 9.8 fL Normal 9.5-13.5 [facility] Comment on above: Performed By: #### H BSANS #### [facility] [address] [address] [address] Kimberly Bocanegra PLT 375 103/ul Normal 150-450 [facility] Comment on above: Performed By: #### H BSANS #### [facility] [address] [address] [address] Kimberly Bocanegra RBC 3.86 106/ul Critically low 4.20-5.40 [facility] Comment on above: Performed By: #### H BSANS #### [facility] [address] [address] [address] Kimberly Bocanegra WBC 9.3 103/ul Normal 4.0-11.0 [facility] Comment on above: Performed By: #### H BSANS #### [facility] [address] [address] [address] Kimberly Bocanegra GLUCOSE - 1HRon 08-17-2022 Glucose [Mass/Vol] 70 mg/dL Critically low 74-106 Th [facility] Comment on above: Performed By: #### H BSANS #### [facility] [address] [address] [address] Kimberly Bocanegra US PREG INCOMPLETE ANATOMYon 08-17-2022 US PREG INCOMPLETE ANATOMY EXAMINATION: US PREG INCOMPLETE ANATOMY HISTORY: Patient currently COMPARISON: Ultrasound anatomy 07/27/2022 FINDINGS: Presentation: Cephalic Amniotic fluid volume: 12.0 cm Heart rate: 134 bpm Anatomy: Hard palate, cord insertion, spine, diaphragm are seen and are unremarkable. GA: 23 weeks 6 days ELIZABETH: 12/08/2022 IMPRESSION: 1. Single live intrauterine . 2. Adequate visualization of the hard palate, cord insertion, spine, and diaphragm. No appreciable abnormality. Electronically authenticated by: ALAN CHUN Date: 2022-08-17 19:06 Normal [facility] COVID/FLU/RSV RT-PCRon 08-15 SARS-CoV-2 (COVID-19) RNA ANNI+probe Ql (Unsp spec) Negative [facility] [employer] Other COVID/FLU/RSV RT-PCR Negative [facility] [employer] Other US PREG ANATOMY SINGLEon US PREG ANATOMY SINGLE EXAMINATION: US PREG ANATOMY SINGLE HISTORY: Patient currently COMPARISON: No relevant comparison available. TECHNIQUE: Transabdominal sonographic examination was performed for obstetrical and evaluation. FINDINGS: Number: 1 Heart Rate: 157.0 bpm H.B. /min Amniotic Fluid Volume: Subjectively normal Placental Location: ANTERIOR, grade 1, with lower margin 3.8 cm from os. 1.8 cm area within placenta favoring a venous higginbotham. Cervix Length: 3.6 cm, closed. ANATOMY: Normal Structures -cerebellum, choroid plexus, cisterna magna, lateral cerebral ventricles, orbits, midline falx, four-chamber heart, RVOT, LVOT, stomach, kidneys, bladder, three-vessel cord, right upper extremity, left upper extremity, right lower extremity, left lower extremity. SUBOPTIMALLY SEEN: Hard palate, diaphragm, abdominal cord insertion, spine. ABNORMALITIES: None BIOMETRY: BPD: 4.6 cm 20 weeks 0 days HC: 18.1 cm 20 weeks 4 days AC: 16.1 cm 21 weeks 1 days FL: 3.2 cm 19 weeks 6 days EFW:360.2 grams; 20% FL/AC: 19.7 FL/BPD: 68.1 HC/AC: 1.1 GESTATIONAL AGE: Age by EDC: 20 weeks 6 days ELIZABETH by EDC: 12/08/2022 Age by current US: 20 weeks 3 days ELIZABETH by current US: 12/11/2022 IMPRESSION: 1. Single live intrauterine with growth detailed above. 2. Suboptimal visualization of the hard palate, diaphragm, abdominal cord insertion, and spine due to position. Electronically authenticated by: ALAN CHUN Date: 2022-07-29 16:31 Normal [facility] CULTURE URINEon 07-08-2022 CULTURE URINE Culture Observations: NO GROWTH. Normal [facility] Comment on above: Performed By: #### U RCX #### [facility] [address] [place] [address] Dr. Kimberly Bocanegra JEN BOX TEST PT SEND OUTo n 06-10-2022 SENT TO REF LAB 06/10/2022 Normal [facility] Comment on above: Performed By: #### B MP #### [facility] [address] [place] [address] Dr. Kimberly Bocanegra CULTURE URINEon 05-31-2022 CULTURE URINE Culture Observations: GREATER THAN TWO ORGANISMS PRESENT. PLEASE RESUBMIT CLEAN CATCH MID-STREAM URINE IF CLINICALLY INDICATED. Normal [facility] Comment on above: Performed By: #### U RCX #### [facility] [address] [place] [address] Dr. Kimberly Bocanegra CBC AUTO DIFFon 05-30-2022 BASO # 0.0 103/ul Normal 0.0-0.1 [facility] Comment on above: Performed By: #### R UBIGG #### [facility] [address] [place] [address] Dr. Kimberly Bocanegra Basophils/100 WBC (Bld) 0.3 % Normal 0.2-2.0 [facility] Comment on above: Performed By: #### R UBIGG #### [facility] [address] [place] [address] Dr. Kimberly Bocanegra EO # 0.1 103/ul Normal 0.0-0.7 [facility] Comment on above: Performed By: #### R UBIGG #### [facility] [address] [place] [address] Dr. Kimberly Bocanegra Eosinophils/100 WBC (Bld) 1.1 % Normal 0.9-7.0 [facility] Comment on above: Performed By: #### R UBIGG #### [facility] [address] [place] [address] Dr. Kimberly Bocanegra Erythrocyte distribution width (RBC) [Ratio] 14.1 % Normal 11.0-15.0 [facility] Comment on above: Performed By: #### R UBIGG #### [facility] [address] [place] [address] Dr. Kimberly Bocanegra Hematocrit (Bld) [Volume fraction] 37.8 % Normal 36.0-48.0 [facility] Comment on above: Performed By: #### R UBIGG #### [facility] [address] [place] [address] Dr. Kimberly Bocanegra Hemoglobin (Bld) [Mass/Vol] 12.3 g/dL Normal 12.0-16.0 [facility] Comment on above: Performed By: #### R UBIGG #### [facility] [address] [address] [address] Kimberly Bocanegra IG # 0.04 10e3/ul Critically high 0.00-0.03 [facility] Comment on above: Performed By: #### R UBIGG #### [facility] [address] [place] [address] Dr. Kimberly Bocanegra IG % 0.5 % Normal 0.0-0.5 [facility] Comment on above: Performed By: #### R UBIGG #### [facility] [address] [place] [address] Dr. Kimberly Bocanegra LYMPH # 1.6 103/ul Normal 1.2-3.8 [facility] Comment on above: Performed By: #### R UBIGG #### [facility] [address] [place] [address] Dr. Kimberly Bocanegra Lymphocytes/100 WBC (Bld) 18.3 % Critically low 20.5-60.0 [facility] Comment on above: Performed By: #### R UBIGG #### [facility] [address] [place] [address] Dr. Kimberly Bocanegra MANUAL DIFF REQ NO Normal [facility] Comment on above: Performed By: #### R UBIGG #### [facility] [address] [place] [address] Dr. Kimberly Bocanegra MCH (RBC) [Entitic mass] 27.3 pg Normal 26.7-34.0 [facility] Comment on above: Performed By: #### R UBIGG #### [facility] [address] [place] [address] Dr. Kimberly Bocanegra MCHC (RBC) [Mass/Vol] 32.5 g/dL Normal 29.9-35.2 [facility] Comment on above: Performed By: #### R UBIGG #### [facility] [address] [place] [address] Dr. Kimberly Bocanegra MCV (RBC) [Entitic vol] 84.0 fL Normal 81.0-99.0 [facility] Comment on above: Performed By: #### R UBIGG #### [facility] [address] [place] [address] Dr. Kimberly Bocanegra MONO # 0.6 103/ul Normal 0.3-0.8 [facility] Comment on above: Performed By: #### R UBIGG #### [facility] [address] [place] [address] Dr. Kimberly Bocanegra Monocytes/100 WBC (Bld) 7.1 % Normal 1.7-12.0 [facility] Comment on above: Performed By: #### R UBIGG #### [facility] [address] [place] [address] Dr. Kimberly Bocanegra NEUT # 6.3 103/ul Normal 1.4-6.5 [facility] Comment on above: Performed By: #### R UBIGG #### [facility] [address] [place] [address] Dr. Kimberly Bocanegra Neutrophils/100 WBC (Bld) 72.7 % Normal 43.0-75.0 [facility] Comment on above: Performed By: #### R UBIGG #### [facility] [address] [place] [address] Dr. Kimberly Bocanegra Platelet mean volume (Bld) [Entitic vol] 10.1 fL Normal 9.5-13.5 [facility] Comment on above: Performed By: #### R UBIGG #### [facility] [address] [place] [address] Dr. Kimberly Bocanegra PLT 336 103/ul Normal 150-450 [facility] Comment on above: Performed By: #### R UBIGG #### [facility] [address] [place] [address] Dr. Kimberly Bocanegra RBC 4.50 106/ul Normal 4.20-5.40 [facility] Comment on above: Performed By: #### R UBIGG #### [facility] [address] [address] [address] Kimberly Bocanegra WBC 8.7 103/ul Normal 4.0-11.0 [facility] Comment on above: Performed By: #### R UBIGG #### [facility] [address] [address] [address] Kimberly Bocanegra ER URINE PROFILEon 2 Bilirubin Ql (U) Negative Normal NEGATIVE [facility] Comment on above: Performed By: #### R UBIGG #### [facility] [address] [place] [address] Dr. Kimberly Bocanegra Clarity (U) CLOUDY Abnormal CLEAR [facility] Comment on above: Performed By: #### R UBIGG #### [facility] [address] [place] [address] Dr. Kimberly Bocanegra Color (U) YELLOW Normal YELLOW [facility] Comment on above: Performed By: #### R UBIGG #### [facility] [address] [place] [address] Dr. Kimberly VALDIVIA A micrscopic examination will be performed if indicated. Normal [facility] Comment on above: Performed By: #### R UBIGG #### [facility] [address] [place] [address] Dr. Kimberly Bocanegra Glucose Ql (U) Negative Normal NEGATIVE [facility] Comment on above: Performed By: #### R UBIGG #### [facility] [address] [place] [address] Dr. Kimberly Bocanegra Hemoglobin Ql (U) SMALL Abnormal NEGATIVE [facility] Comment on above: Performed By: #### R UBIGG #### [facility] [address] [place] [address] Dr. Kimberly Bocanegra Ketones Ql (U) TRACE Abnormal NEGATIVE [facility] Comment on above: Performed By: #### R UBIGG #### [facility] [address] [address] [address] Kimberly Bocanegra LEUKOCYTES MODERATE Abnormal NEGATIVE [facility] Comment on above: Performed By: #### R UBIGG #### [facility] [address] [address] [address] Kimberly Bocanegra Nitrite Ql (U) Negative Normal NEGATIVE [facility] Comment on above: Performed By: #### R UBIGG #### [facility] [address] [address] [address] Kimberly Bocanegra pH (U) 6.0 [pH] Normal 5-9 [facility] Comment on above: Performed By: #### R UBIGG #### [facility] [address] [place] [address] Dr. Kimberly Bocanegra SPEC GRAVITY 1.025 Normal 1.005-<=1.025 [facility] Comment on above: Performed By: #### R UBIGG #### [facility] [address] [place] [address] Dr. Kimberly Bocanegra UA PROTEIN TRACE Normal NEGATIVE/ TRACE [facility] Comment on above: Performed By: #### R UBIGG #### [facility] [address] [place] [address] Dr. Kimberly Bocanegra UR MICRO IND INDICATED Normal [facility] Comment on above: Performed By: #### R UBIGG #### [facility] [address] [place] [address] Dr. Kimberly Bocanegra Urobilinogen Qn (U) 1.0 {Haim'U}/dL Normal 0.2 - 1. 0 [facility] Comment on above: Performed By: #### R UBIGG #### [facility] [address] [place] [address] Dr. Kimberly Bocanegra PROF CHEM 8 (BAS METB)on Anion gap [Moles/Vol] 14.2 mmol/L Normal [facility] Comment on above: Performed By: #### B MP #### [facility] [address] [place] [address] Dr. Kimberly Bocanegra Calcium [Mass/Vol] 9.2 mg/dL Normal 8.5-10.1 [facility] Comment on above: Performed By: #### B MP #### [facility] [address] [address] [address] Kimberly Bocanegra Chloride [Moles/Vol] 103 mmol/L Normal 98-107 [facility] Comment on above: Performed By: #### B MP #### [facility] [address] [address] [address] Kimberly Bocanegra CO2 [Moles/Vol] 25.3 mmol/L Normal 21.0-32.0 [facility] Comment on above: Performed By: #### B MP #### [facility] [address] [address] [address] Kimberly Bocanegra Creatinine [Mass/Vol] 0.53 mg/dL Critically low 0.55-1.02 [facility] Comment on above: Performed By: #### B MP #### [facility] [address] [place] [address] Dr. Kimberly Bocanegra EGFR-AF DUTCH >60 Normal >=60 [facility] Comment on above: Performed By: #### B MP #### [facility] [address] [address] [address] Kimberly Bocanegra EGFR-NON AF DUTCH >60 Normal >=60 [facility] Comment on above: Performed By: #### B MP #### [facility] [address] [address] [address] Kimberly Bocanegra Glucose [Mass/Vol] 91 mg/dL Normal 74-106 [facility] Comment on above: Performed By: #### B MP #### [facility] [address] [address] [address] Kimberly Bocanegra Potassium [Moles/Vol] 3.5 mmol/L Normal 3.5-5.1 [facility] Comment on above: Performed By: #### B MP #### [facility] [address] [address] [address] Kimberly Bocanegra Sodium [Moles/Vol] 139 mmol/L Normal 136-145 [facility] Comment on above: Performed By: #### B MP #### [facility] [address] [address] [address] Kimberly Bocanegra Urea nitrogen [Mass/Vol] 7.0 mg/dL Normal 7.0-18.0 [facility] Comment on above: Performed By: #### B MP #### [facility] [address] [address] [address] Kimberly Bocanegra Urea nitrogen/Creatinine [Mass ratio] 13.2 mg/mg Normal [facility] Comment on above: Performed By: #### B MP #### [facility] [address] [place] [address] Dr. Kimberly Bocanegra URINE MICROSCOPIC ONLYon BACTERIA LARGE Abnormal NONE SEEN [facility] Comment on above: Performed By: #### R UBIGG #### [facility] [address] [place] [address] Dr. Kimberly Bocanegra Bacteria identified Cx Nom (U) INDICATED Normal [facility] Comment on above: Performed By: #### R UBIGG #### [facility] [address] [place] [address] Dr. Kimberly Bocanegra CA OX CRYSTALS RARE Normal [facility] Comment on above: Performed By: #### R UBIGG #### [facility] [address] [place] [address] Dr. Kimberly Bocanegra CAST NONE SEEN Normal NONE SEEN [facility] Comment on above: Performed By: #### R UBIGG #### [facility] [address] [place] [address] Dr. Kimberly Bocanegra Crystals LM Nom (Urine sed) SEEN Abnormal NONE SEEN [facility] Comment on above: Performed By: #### R UBIGG #### [facility] [address] [place] [address] Dr. Kimberly Bocanegra Epithelial cells LM Ql (Urine sed) MANY Abnormal NONE SEEN /RARE [facility] Comment on above: Performed By: #### R UBIGG #### [facility] [address] [place] [address] Dr. Kimberly Bocanegra MUCOUS MODERATE Abnormal NONE SEEN [facility] Comment on above: Performed By: #### R UBIGG #### [facility] [address] [address] [address] Kimberly Bocanegra RBC 2-5 Abnormal 0-2 [facility] Comment on above: Performed By: #### R UBIGG #### [facility] [address] [address] [address] Kimberly Bocanegra WBC 20-50 Abnormal NONE SEEN [facility] Comment on above: Performed By: #### R UBIGG #### [facility] [address] [address] [address] Kimberly Bocanegra JEN BOX TEST PT SEND OUTo n 05-20-2022 SENT TO REF LAB 05/20/2022 Normal [facility] Comment on above: Performed By: #### R UBIGG #### [facility] [address] [place] [address] Dr. Kimberly Bocanegra HEP B SURFACE ANTIGEN SCREEN on 05-14-2022 HBsAg Screen Negative Normal Negative [facility] Comment on above: Performed By: #### H BSANS #### [facility] [address] [place] [address] Dr. Kimberly Bocanegra HEPATITIS C VIRUS AB W/ REFL EX QUANTon 05-14-2022 HCV AB <0.1 Normal 0.0-0.9 [facility] Comment on above: Performed By: #### R UBIGG #### [facility] [address] [place] [address] Dr. Kimberly Bocanegra Interpretation: Comment Normal [facility] Comment on above: Result Comment: Nega tive Not infected with HCV, unless recent infection is suspected or other evidence exists to indicate HCV infection. Performed By: #### R UBIGG #### [facility] [address] [place] [address] Dr. Kimberly Bocanegra HIV 1 AND 2 WITH REFLEXon HIV Screen 4th Generation wRfx Non-Reactive Normal Non Reactive [facility] Comment on above: Result Comment: HIV Negative HIV-1/HIV-2 antibodies and HIV-1 p24 antigen were NOT detected. There is no laboratory evidence of HIV infection. Performed By: #### R UBIGG #### [facility] [address] [place] [address] Dr. Kimberly Bocanegra RPR QUANTon 05-14-2022 Rapid Plasma Reagin, Quant Non-Reactive Normal NonRea<1:1 [facility] Comment on above: Result Comment: Keshia tubbs Note: This test does not meet current guidelines for screening and diagnosis of syphilis. This test is intended for following treatment response in patients being treated for syphilis infection. To screen for syphilis infection, a reflex cascade that includes both RPR and a treponema-specific assay should be utilized, such as Treponema pallidum (Syphilis) Screening [place] (503321) or Rapid Plasma Reagin (RPR) Test With Reflex to Quantitative RPR and Confirmatory Treponema pallidum Antibodies (035104). Performed By: #### R PRQ #### [facility] [address] [place] [address] Dr. Kimberly Bocanegra RUBELLA AB IGGon 05-14-2022 Rubella Antibodies, IgG 11.20 index Normal Immune >0.99 [facility] Comment on above: Result Comment: Non- immune <0.90 Equivocal 0.90 - 0.99 Immune >0.99 Performed By: #### R UBIGG #### [facility] [address] [place] [address] Dr. Kimberly Bocanegra CBC AUTO DIFFon 05-13-2022 BASO # 0.1 103/ul Normal 0.0-0.1 [facility] Comment on above: Performed By: #### C BC #### [facility] [address] [place] [address] Dr. Kimberly Bocanegra Basophils/100 WBC (Bld) 0.6 % Normal 0.2-2.0 [facility] Comment on above: Performed By: #### C BC #### [facility] [address] [place] [address] Dr. Kimberly Bocanegra EO # 0.1 103/ul Normal 0.0-0.7 [facility] Comment on above: Performed By: #### C BC #### [facility] [address] [place] [address] Dr. Kimberly Bocanegra Eosinophils/100 WBC (Bld) 0.9 % Normal 0.9-7.0 [facility] Comment on above: Performed By: #### C BC #### [facility] [address] [place] [address] Dr. Kimberly Bocanegra Erythrocyte distribution width (RBC) [Ratio] 13.8 % Normal 11.0-15.0 [facility] Comment on above: Performed By: #### C BC #### [facility] [address] [place] [address] Dr. Kimberly Bocanegra Hematocrit (Bld) [Volume fraction] 41.5 % Normal 36.0-48.0 [facility] Comment on above: Performed By: #### C BC #### [facility] [address] [place] [address] Dr. Kimberly Bocanegra Hemoglobin (Bld) [Mass/Vol] 13.7 g/dL Normal 12.0-16.0 [facility] Comment on above: Performed By: #### C BC #### [facility] [address] [place] [address] Dr. Kimberly Bocanegra IG # 0.03 10e3/ul Normal 0.00-0.03 [facility] Comment on above: Performed By: #### C BC #### [facility] [address] [place] [address] Dr. Kimberly Bocanegra IG % 0.3 % Normal 0.0-0.5 [facility] Comment on above: Performed By: #### C BC #### [facility] [address] [place] [address] Dr. Kimberly Bocanegra LYMPH # 2.4 103/ul Normal 1.2-3.8 [facility] Comment on above: Performed By: #### C BC #### [facility] [address] [place] [address] Dr. Kimberly Bocanegra Lymphocytes/100 WBC (Bld) 23.3 % Normal 20.5-60.0 [facility] Comment on above: Performed By: #### C BC #### [facility] [address] [place] [address] Dr. Kimberly Bocanegra MANUAL DIFF REQ NO Normal [facility] Comment on above: Performed By: #### C BC #### [facility] [address] [address] [address] Kimberly Bocanegra MCH (RBC) [Entitic mass] 27.4 pg Normal 26.7-34.0 [facility] Comment on above: Performed By: #### C BC #### [facility] [address] [address] [address] Kimberly Bocanegra MCHC (RBC) [Mass/Vol] 33.0 g/dL Normal 29.9-35.2 [facility] Comment on above: Performed By: #### C BC #### [facility] [address] [address] [address] Kimberly Bocanegra MCV (RBC) [Entitic vol] 83.0 fL Normal 81.0-99.0 [facility] Comment on above: Performed By: #### C BC #### [facility] [address] [place] [address] Dr. Kimberly Bocanegra MONO # 0.4 103/ul Normal 0.3-0.8 [facility] Comment on above: Performed By: #### C BC #### [facility] [address] [place] [address] Dr. Kimberly Bocanegra Monocytes/100 WBC (Bld) 4.2 % Normal 1.7-12.0 [facility] Comment on above: Performed By: #### C BC #### [facility] [address] [address] [address] Kimberly Bocanegra NEUT # 7.4 103/ul Critically high 1.4-6.5 [facility] Comment on above: Performed By: #### C BC #### [facility] [address] [place] [address] Dr. Kimberly Bocanegra Neutrophils/100 WBC (Bld) 70.7 % Normal 43.0-75.0 [facility] Comment on above: Performed By: #### C BC #### [facility] [address] [place] [address] Dr. Kimberly Bocanegra Platelet mean volume (Bld) [Entitic vol] 10.0 fL Normal 9.5-13.5 [facility] Comment on above: Performed By: #### C BC #### [facility] [address] [address] [address] Kimberly Bocanegra PLT 414 103/ul Normal 150-450 [facility] Comment on above: Performed By: #### C BC #### [facility] [address] [address] [address] Kimberly Bocanegra RBC 5.00 106/ul Normal 4.20-5.40 [facility] Comment on above: Performed By: #### C BC #### [facility] [address] [address] [address] Kimberly Bocanegra WBC 10.4 103/ul Normal 4.0-11.0 [facility] Comment on above: Performed By: #### C BC #### [facility] [address] [place] [address] Dr. Kimberly Bocanegra CULTURE URINEon 05-13-2022 CULTURE URINE Culture Observations: LIGHT GROWTH OF MIXED GENITAL PHILIPPE. NO POTENTIAL PATHOGENS SEEN. Normal [facility] Comment on above: Performed By: #### U RCX #### [facility] [address] [place] [address] Dr. Kimberly Bocanegra GLYCOHEMOGLOBIN A1Con 2021 ADA RECOMMENDATION SEE BELOW Normal [facility] Comment on above: Result Comment: ADA RECOMMENDED LIMIT 4.0 - 6.0 ADA THERAPEUTIC TARGET < 7.0 ACTION SUGGESTED > 7.0 Performed By: #### R UBIGG #### [facility] [address] [place] [address] Dr. Kimberly Bocanegra Glucose [Mass/Vol] 108 mg/dL Normal [facility] Comment on above: Performed By: #### R UBIGG #### [facility] [address] [place] [address] Dr. Kimberly Bocanegra HbA1c (Bld) [Mass fraction] 5.4 % Normal 4.5-6.2 [facility] Comment on above: Performed By: #### R UBIGG #### [facility] [address] [place] [address] Dr. Kimberly Bocanegra TYPE AND SCREENon 05-13-2022 TYPE AND SCREEN Negative Normal [facility] Comment on above: Performed By: #### T NS #### [facility] [address] [place] [address] Dr. Kimberly Bocanegra US PREG TVon 04-19-2022 US PREG TV EXAMINATION: US PREG TV HISTORY: Missed period COMPARISON: No relevant comparison available. FINDINGS: GESTATIONAL SAC: Present and normal appearing. POLE: Present and normal appearing. YOLK SAC: Present. CARDIAC: Present. UTERUS: Normal size and appearance. OVARIES: Right: Corpus lutein cyst. Left: Normal. CERVIX: 3.7 cm in length and closed. CUL-DE-SAC: Normal. OTHER: None. AGE BY LMP: 9 weeks, 5 days ELIZABETH BY LMP: 11/17/2022 AGE BY US CRL: 6 weeks, 5 days ELIZABETH BY US CRL: 12/08/2022 IMPRESSION: 1. Single live intrauterine . Electronically authenticated by: ALAN CHUN Date: 2022-04-19 17:12 Normal [facility] Gynecology Office/Clinic Not george 08-18-2019 Gynecology Office/Clinic Note Chief Complaint 19y/o New Pt- Amenorrhea. LMP 05/22/19, 12.4 wks by LMP. History of Present Illness Contraception Type: Condoms Last Menstrual Period: 05/22/19 Frequency of Menstruation: 28-30 days Abnormal vaginal discharge: No Breast lumps/pain: No Clotting with periods: No Heavy periods: No Hot flashes: No Irregular periods: No Night sweats: No Painful periods: No Painful sex: No Pelvic pain: No Spotting: No Vaginal dryness: No Vaginal itch/burning/odor: No Additional HPI details: Unplanned . C/o nausea & vomiting in first trimester, but is improving. Pt is able to keep some foods down now. Taking OTC PNVs & is nauseaus all day. Review of Systems Head Migraines: No Headaches: No Eyes Corrective lenses: Yes Corrective lenses comment: glasses Blurred vision: No Ears, Nose, Throat Congestion: No Vertigo: No Sore throat: No Nasal drainage: No Cardio Respiratory Peripheral edema: No Heart Irregularity: No Chest Pain: No Shortness of Breath: No Gastrointestinal Bloating: No Reflux/heartburn: No Abdominal Pain: No Change in bowel habits: No Urinary Urinary Incontinence: No Urinary frequency: No Nocturia: No Urgency: No Painful urination: No Musculoskeletal Backpain: No Muscle aches: No Joint pain: No Integumentary Lesions: No Moles: No Acne: No Hair changes: No PsychoSocial Sleep Problems: No Anxiety: No Suicidal Ideation: No Homicidal Ideation: No Depression: No Hematologic/Lymphati c Lymphadenopathy: No Thromboembolism: No Bruising: No Bleeding tendencies: No Endocrine Abnormal weight gain: No Abnormal weight loss: No Fatigue: No Additional Details Pain Present Physical Exam Vitals & Measurements BP: 110/62 HT: 165 cm WT: 86.5 kg DOSE WT: 86.5 kg BMI: 31.77 Generally looks comfortable Alert, oriented x3, nl mood and affect. Abd: uterine fundus not palpable suprapubically. Additional Vitals Body Mass Index Measured: 31.77 kg/m2 BP Position/Location: Sitting Assessment/Plan 1. Positive test Patient and FOB were counseled for 25 minutes about; 1. What to expect from the rest of the 1st trimester and 2nd trimester. 2. testing including CFFDNA. 3. Encouraged healthy diet and remaining active for the whole duration. 4. Told about PNI visit which will have more details about care orientation. 5. The routine lab work and U/S scans. I answered all their questions and they verbalized their satisfaction. Recommended Doxylamine 10 mg qhs for morning nausea. Ordered: [id number] AMB Urine POC Problem List/Past Medical History Ongoing No chronic problems Historical No qualifying data Procedure/Surgical History Dental procedure Medications No active medications Allergies No Known Allergies No Known Medication Allergies Social History Alcohol Past, 1-2 times per month Substance Abuse Past, Marijuana, 1-2 times per week Tobacco Never (less than 100 in lifetime) Use:. Family History Deaf mutism: Aunt. Diabetes mellitus: Grandfather (M) and Grandmother (M). Heart disease: Grandfather (M). 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 First trimester tips Nausea ?Get up slowly. Eat a few unsalted crackers before you get out of bed. ?Avoid smells that bother you. ?Eat small?bland low fat, light high-protein meals at frequent intervals. ?Sip on water, weak?tea, or clear soft drinks, like pina jessica.?Eat ice chips. Fatigue ?Take catnaps when you can. ?Get regular exercise. ?Accept help from others. ?Practice good sleep habits, like going to bed and getting up at the same time each day. Use your bed only for sleep and sex. Mood swings ?Talk about your feelings with others, including other mothers. ?Limit sugar, chocolate, and caffeine. ?Eat a healthy diet. Don?t skip meals. ?Get regular exercise. Headaches ?Get fresh air and exercise. ?Relax and get enough rest. ?Check with your healthcare provider before taking any pain medicines. Second trimester tips Here are some suggestions to help you cope: ?To limit ankle swelling, sit with your feet raised or wear support hose. ?If you have pain in your groin and stomach?(round ligament pain), avoid sudden twisting movements. ?For leg cramps, flexing your foot often brings immediate relief. You also may try massaging your calf in long, downward strokes, or stretching your legs before going to bed. Get enough exercise and wear shoes with flexible soles. Third trimester tips Reducing heartburn ?Eat small, light meals throughout the day rather than 3 large ones. ?Sleep with your upper body raised 6 inches. Don?t lie down until 2 hours after you eat. ?Don't eat greasy, fried, or spicy foods. ?Avoid citrus fruits and juices. Treating constipation ?Eat foods high in fiber (whole-grain foods, fresh fruit and vegetables). ?Drink plenty of water. ?Get regular exercise. ?Discuss other medicines (like docusate and psyllium) with your healthcare provider. Taking care of your breasts ?Avoid using harsh soaps or alcohol, which can cause excessive dryness. ?Wear nursing bras. They provide more support than regular bras and can be used after if you breastfeed. Getting a good night?s sleep ?Take a warm shower before bed. ?Sleep on a firm mattress. ?Lie on your side with 1 leg crossed over the other. ?Use pillows to support arms, legs, and belly. ? [id number] [employer]. [address] [place] [address]. All rights reserved. This information is not intended as a substitute for professional medical care. Always follow your healthcare professional's instructions. [facility] Vital Signs Date Time Vital Sign Value Performing Clinician Facility 02-05-2023 11:30-0400 Body height 162.56 cm Erin Crocker Other [facility] Other 02-05-2023 11:30-0400 Body mass index (BMI) [Ratio] 33.98 kg/m2 Erin Crocker Other [facility] Other 02-05-2023 11:30-0400 Body temperature 98.8 [degF] Erin Crocker Other [facility] Other 02-05-2023 11:30-0400 Body weight 89.81 kg Erin Crocker Other [facility] Other 02-05-2023 11:30-0400 Diastolic blood pressure 63 mm[Hg] Erin Crocker Other [facility] Other 02-05-2023 11:30-0400 Respiratory rate 18 /min Erin Crocker Other [facility] Other 02-05-2023 11:30-0400 SaO2% (BldA) [Mass fraction] 100 % Erin Crocker Other [facility] Other 02-05-2023 11:30-0400 Systolic blood pressure 108 mm[Hg] Erin Crocker Other [facility] Other 08-15-2022 10:30-0500 Body height 162.56 cm Leslee Garciaault Other [facility] Other 08-15-2022 10:30-0500 Body mass index (BMI) [Ratio] 34.67 kg/m2 Leslee Garciaault Other [facility] Other 08-15-2022 10:30-0500 Body temperature 97.8 [degF] Leslee French Other [facility] Other 08-15-2022 10:30-0500 Body weight 91.63 kg Leslee Garciaault Other [facility] Other 08-15-2022 10:30-0500 Diastolic blood pressure 47 mm[Hg] Leslee French Other [facility] Other 08-15-2022 10:30-0500 Respiratory rate 16 /min Leslee French Other [facility] Other 08-15-2022 10:30-0500 SaO2% (BldA) [Mass fraction] 97 % Leslee French Other [facility] Other 08-15-2022 10:30-0500 Systolic blood pressure 106 mm[Hg] Leslee Braswell Other [facility] Other 04-06-2022 14:10-0400 Body height 162.56 cm Renzo Mendieta Other [facility] Other 04-06-2022 14:10-0400 Body mass index (BMI) [Ratio] 33.3 kg/m2 Renzo Mendieta Other [facility] Other 04-06-2022 14:10-0400 Body temperature 98.5 [degF] Renzo Mendieta Other [facility] Other 04-06-2022 14:10-0400 Body weight 88 kg Renzo Mendieta Other [facility] Other 04-06-2022 14:10-0400 Diastolic blood pressure 53 mm[Hg] Renzo Mendieta Other [facility] Other 04-06-2022 14:10-0400 Respiratory rate 16 /min Renzo Mendieta Other [facility] Other 04-06-2022 14:10-0400 SaO2% (BldA) [Mass fraction] 98 % Renzo Mendieta Other [facility] Other 04-06-2022 14:10-0400 Systolic blood pressure 101 mm[Hg] Renzo Mendieta Other [facility] Other 06-21-2021 12:00-0500 Body height 162.56 cm Leslee Braswell Other [facility] Other 06-21-2021 12:00-0500 Body mass index (BMI) [Ratio] 34.15 kg/m2 Leslee Braswell Other [facility] Other 06-21-2021 12:00-0500 Body temperature 97.3 [degF] Leslee Braswell Other [facility] Other 06-21-2021 12:00-0500 Body weight 90.27 kg Leslee Braswell Other [facility] Other 06-21-2021 12:00-0500 Diastolic blood pressure 63 mm[Hg] Leslee Braswell Other [facility] Other 06-21-2021 12:00-0500 Respiratory rate 16 /min Leslee Braswell Other [facility] Other 06-21-2021 12:00-0500 SaO2% (BldA) [Mass fraction] 97 % Leslee Braswell Other [facility] Other 06-21-2021 12:00-0500 Systolic blood pressure 102 mm[Hg] Leslee Brasewll Other [facility] Other Encounters Encounter Date Encounter Type Care Provider Facility Start: 01-16-2024 End: 01-16-2024 ambulatory ALIZA Lawson [facility] Start: 02-07-2023 End: 02-07-2023 ambulatory Erin Crocker Other [facility] Other Start: 02-07-2023 Telephone encounter [facility] Start: 02-05-2023 Office outpatient visit 15 minutes Erin Crocker [facility] Start: 02-05-2023 End: 02-05-2023 ambulatory Erin Crocker [facility] Other Start: 02-05-2023 End: 02-05-2023 [facility] Erin Crocker Work Phone: [facility] [place] Work Phone: Start: 12-02-2022 End: 12-04-2022 Evaluation and management of inpatient DR ARIADNA BACON . Facility:[facility] Start: 11-25-2022 End: 11-25-2022 ambulatory LESLEE BRASWELL Facility:[facility] Start: 09-04-2022 End: 09-04-2022 ambulatory JORGE HAMMOND . Facility:[facility] Start: 08-17-2022 End: 08-18-[address] ARIADNA BACON . Facility:[facility] Start: 08-15-2022 End: 08-15-2022 ambulatory Leslee Braswell Other [facility] Other Start: 08-15-2022 Office outpatient visit 25 minutes Leslee Braswell [facility] Start: 07-27-2022 End: 07-28-[address] ARIADNA BACON . Facility:[facility] Start: 07-08-2022 End: 07-08-[address] ARIADNA BACON . Facility:[facility] Start: 06-10-2022 End: 06-11-[address] ARIADNA BACON . Facility:[facility] Start: 05-30-2022 End: 05-30-2022 ambulatory PHILLIP CEDENO Facility:[facility] Start: 05-20-2022 End: 05-21-[address] ARIADNA BACON . Facility:[facility] Start: 05-13-2022 End: 05-14-[address] ARIADNA BACON . Facility:[facility] Start: 05-13-2022 End: 05-14-[address] ARIADNA BACON . Facility:[facility] Start: 04-19-2022 End: 04-20-[address] ARIADNA BACON . Facility:[facility] Start: 04-06-2022 End: 04-06-2022 ambulatory Renzo Mendieta Other [facility] Other Start: 04-06-2022 Office outpatient visit 15 minutes Machellemedardo Gayatri [facility] Start: 08-15-2021 End: 08-15-2021 ambulatory Leslee Braswell Other [facility] Other Start: 08-15-2021 Telephone encounter Leslee leon [facility] [employer] Start: 06-21-2021 End: 06-21-2021 ambulatory Leslee Braswell Other [facility] Other Start: 06-21-2021 Office outpatient visit 25 minutes Leslee Braswell [facility] Start: 06-07-2021 End: 06-07-2021 ambulatory Leslee Braswell Other [facility] Other Start: 06-07-2021 Telephone encounter Leslee leon [facility] Procedures Date Procedure Procedure Detail Performing Clinician Start: 12-02-2022 Delivery of Products of Conception, External Approach DR ARIADNA BACON . Start: 12-02-2022 Drainage of Amniotic Fluid, Therapeutic from Products of Conception, Via Natural or Artificial Opening DR ARIADNA BACON . Start: 12-02-2022 Introduction of Othe r Hormone into Peripheral Vein, Percutaneous Approach DR ARIADNA BACON . Plan of Treatment Date Care Activity Detail Author Start: 02-05-2023 Bacteria identified in Urine by Culture [facility] Payers Date Payer Category Payer Unknown [id number] 2.16.84 [id number] 2001 Unknown [id number] 2.16.84 [id number] 2001 Unknown [id number] 2.16.84 [id number] 2001 Unknown [id number] 2.16.84 [id number] 2001 Unknown [id number] 2.16.84 0.1.179162.3.579.2.593 2001 Unknown [id number] 2.16.84 0.1.126363.3.579.2.593 2001 Unknown [id number] 2.16.84 0.1.948324.3.579.2.593 2001 Unknown [id number] 2.16.84 0.1.971706.3.579.2.593 2001 Unknown [id number] 2.16.84 0.1.384267.3.579.2.593 2001 Unknown [id number] 2.16.84 0.1.342225.3.579.2.593 2001 Unknown [id number] 2.16.8 [id number] 1958 Self-pay 1958 Unknown [id number] 2.16.840 .[id number] Medicaid Bernie Advantage [id number] Unknown [id number] 2.16.84 [id number] Unknown [id number] 2.16.84 0.1.982432.3.579.2.593 Unknown [id number] 2.16.84 [id number] Unknown [id number] 2.16.8 [id number] Social History Date Type Detail Facility Sex Assigned At [facility] Other Start: 2000 Sex Assigned At Female F [facility] Evaluation note 02-05-2023 Note Date & Type Note Facility 02-05-2023 Evaluation note Encounter Date Diagnosis Assessment Notes Jan, Nausea (ICD-10 - R11.0) Nausea and vomiting: adult material was printed Jan, Viral infection (ICD-10 - B34.9) Drink plenty fluids, get plenty of rest. Take Tylenol as needed for aches or pains. Follow-up with your family physician if no improvement in 2 to 3 days Jan, Contact with and (suspected) exposure to covid-19 (ICD-10 - Z20.822) [facility] Other Evaluation note 08-15-2022 Note Date & Type Note Facility 08-15-2022 Evaluation note Encounter Date Diagnosis Assessment Notes Aug, Contact with and (suspected) exposure to other viral communicable diseases (ICD-10 - Z20.828) Aug, Viral URI (ICD-10 - J06.9) Symptoms appear viral today. Bacteria infections take several days to weeks of symptoms to develop. Use saline nasal spray before prescription one and you have better results. Recommend OTC medications such as Mucinex, Delsym, Cepocal Lozenges Continue tylenol for general discomfort. Encourage fluids. Symptoms should improve within the next 10-14 days. If no improvement of symptoms in 14 days call primary care provider to discuss antibiotic therapy [facility] Other Evaluation note 04-06-2022 Note Date & Type Note Facility 04-06-2022 Evaluation note Encounter Date Diagnosis Assessment Notes Mar, Hives (ICD-10 - L50.9) Rx cream as directed - pt advised to avoid use of cream over abdomen. No oral steroid at this time based on - may f/u with obgyn for persist or worsening sx to discuss oral steroid. Pt to avoid contact with allergen. Avoid hot showers as it draws out rash. Pt to use topical calamine lotion or benadryl cream prn for itching. Otc benadryl prn. Pt to f/u with pcp as needed for persistent or worsening symptoms. Pt understood and agreed to treatment plan. [facility] Other History general Narrative - Reported 07-11-2020 Note Date & Type Note Facility 07-11-2020 History general N arrative - Reported Type Medical History post- depression Medical History COVID-19 07/2020 [facility] Other History general Narrative - Reported 07-11-2020 Note Date & Type Note Facility 07-11-2020 History general N arrative - Reported Type Medical History post- depression Medical History COVID-19 07/2020 Surgical History Vaginal X1 02/2020 Hospitalization History see above [facility] Other History general Narrative - Reported 07-11-2020 Note Date & Type Note Facility 07-11-2020 History general N arrative - Reported Type Medical History post- depression Medical History COVID-19 07/2020 Surgical History Vaginal X1 02/2020 Surgical History tubal ligation 01/2023 Hospitalization History see above [facility] Other Evaluation note Note Date & Type Note Facility Evaluation note No Information [facility] Other Evaluation note Note Date & Type Note Facility Evaluation note Events [facility] Other Evaluation note Note Date & Type Note Facility Evaluation note No assessment information availa [facility] Work Phone: History general Narrative - Reported Note Date & Type Note Facility History general Narrative - Reported [facility] Other Summary Purpose Family History No Family History Records FoundNo Family History Records FoundNo Family History Records FoundNo Family History Records Found Advance Directives No Advanced Directives Records Found Advance Directive Response Recorded Date/ Time Advance Directives No May 26, 2021 12:49pm Chief Complaint and Reason for Visit Chief Complaint Nausea Additional Source Comments INFORMATION SOURCE (unrecogn ized section and content) DATE CREATED AUTHOR 09/10/2019 [facility] DATE CREATED AUTHOR AUTHOR'S ORGANIZ ATION 12/13/2022 [facility] DATE CREATED AUTHOR AUTHOR'S ORGANIZ ATION 02/17/2023 [facility] DATE CREATED AUTHOR AUTHOR'S ORGANIZ ATION 01/17/2024 [facility] REASON FOR VISIT (unrecogniz ed section and content) cold chills, body acheschill s, h/a, tired, body achesRASH, 7 WKS Referral Care Teams (unrecognized sec tion and content) Team Status: Inactive Member Role Status Dates SABI Camejo Attending Provider Active Goals (unrecognized section and content) Goals may be documented in a n alternate section FOR RECORDS PERTAINING TO PATIENTS WHO ARE OR HAVE BEEN ENROLLED IN A CHEMICAL DEPENDENCY/SUBSTANCEABUSE PROGRAM, SOME INFORMATION MAY BE OMITTED. This clinical summary was aggregated from multiple sources. Caution should be exercised in using it in the provision of clinical care. This summary normalizes information from multiple sources, and as a consequence, information in this document may materially change the coding, format and clinical context of patient data. In addition, data may be omitted in some cases. CLINICAL DECISIONS SHOULD BE BASED ON THE PRIMARY CLINICAL RECORDS. [facility] [employer] [facility]. provides no warranty or guarantee of the accuracy or completeness of information in this document.
--- NOTE | 2024-02-14 22:26 | ED.GENADUL1 ---
HPI HPI - General Adult General Chief complaint: Dizziness Stated complaint: dizziness, nausea Time Seen by Provider: 02/14/24 22:22 Source: patient Mode of arrival: walk-in Limitations: no limitations History of Present Illness HPI narrative: 24-year-old female presents for nausea and vomiting which began this morning. She has not had diarrhea or fever. She has not been around any ill people. LMP was about 3 weeks ago. She does not complain of abdominal pain. Related Data Home Medications ?Medication ?Instructions ?Recorded ?Confirmed Bacillus coagulans 250 million cell PO 01/20/23 cell chewable tablet (Digestive Advantage Probiotic Gummy) Previous Rx's ?Medication ?Instructions ?Recorded amoxicillin 500 mg capsule 500 mg PO Q12H 10 days #20 caps 02/26/23 carbamide peroxide 6.5 % ear drops 5 drp otic (ear) BID 4 days #15 mL 02/26/23 (Debrox) ondansetron 4 mg disintegrating 4 mg PO Q6H PRN nausea and 02/14/24 tablet vomiting #20 tabs Allergies Allergy/AdvReac Type Severity Reaction Status Date / Time No Known Drug Allergies Allergy Verified 02/14/24 22:13 Opioid HPI Opioid Management Most Recent Opioid Data: Last Pain Scale 3 01/24/23 13:30 Review of Systems ROS Narrative A ten point review of systems is negative except as noted above. [facility] Medical History (Updated 02/14/24 @ 23:14 by Jaden Feng MD) Request for sterilization ?Z30.2 - Encounter for sterilization (ICD-10) History of blood transfusion ?Z92.89 - Personal history of other medical treatment (ICD-10) Anemia ?D64.9 - Anemia, unspecified (ICD-10) Anxiety ?F41.9 - Anxiety disorder, unspecified (ICD-10) Depression ?F32.A - Depression, unspecified (ICD-10) Hearing loss ?H91.90 - Unspecified hearing loss, unspecified ear (ICD-10) Family History (Updated 01/20/23 @ 14:09 by Noelle Clay) Other Asthma Family history of bleeding or clotting disorder Family history of diabetes mellitus Family history of heart disease Family history of stroke Hypercholesterolemia Social History (Updated 01/20/23 @ 14:05 by Noelle Clay) Within the past year, how often did you have a drink containing alcohol: 2-4 times a month Within the past year, how many standard drinks containing alcohol did you have on a typical day: 1 or 2 Total score: 0 Score interpretation: A score less than 3 is consistent with normal alcohol consumption. 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 General: The patient appears well and in no apparent distress. Patient is resting comfortably on cart. Skin: Warm, dry, no pallor noted. There is no rash noted. Head: Normocephalic, atraumatic Eye: Normal conjunctiva, no drainage Ears, Nose, Mouth, and Throat: oral mucosa is moist. Nares patent. Cardiovascular: Regular Rate and Rhythm Respiratory: Patient is in no distress, no accessory muscle use, lungs are clear to auscultation, no wheezing, rales or rhonchi Back: non-tender GI: Soft and nontender Musculoskeletal: The patient has no evidence of calf tenderness, no pitting edema, symmetrical pulses noted bilaterally Neurological: Awake and alert Psychiatric: Cooperative Constitutional Vital Signs, click to edit/add: Last Vital Signs Temp 98 F 02/14/24 22:13 Pulse 60 02/14/24 22:13 Resp 18 02/14/24 22:13 BP 109/63 02/14/24 22:19 Pulse Ox 99 02/14/24 22:20 O2 Del Method Room Air 02/14/24 22:13 Course Vital Signs Vital signs: Vital Signs Temperature 98 F 02/14/24 22:13 Pulse Rate 60 02/14/24 22:13 Respiratory Rate 18 02/14/24 22:13 Blood Pressure 107/59 02/14/24 22:13 Pulse Oximetry 99 02/14/24 22:13 Oxygen Delivery Method Room Air 02/14/24 22:13 Temperature 98 F 02/14/24 22:13 Pulse Rate 60 02/14/24 22:13 Respiratory Rate 18 02/14/24 22:13 Blood Pressure 109/63 02/14/24 22:19 Pulse Oximetry 99 02/14/24 22:20 Oxygen Delivery Method Room Air 02/14/24 22:13 Medical Decision Making MDM Narrative Medical decision making narrative: Blood work is essentially normal and she is not . She was given IV fluids and Zofran and discharged home with a prescription for Zofran. Treatment diagnosis and follow-up were discussed with the patient. Differential Diagnosis Differential Diagnosis: Gastroenteritis, food poisoning, dehydration Lab Data Lab results reviewed: Yes I reviewed the patient's lab results Labs: Lab Results 02/14/24 Range/Units 22:30 WBC 8.0 (4.0-11.0) 10^3/uL RBC 4.61 (4.20-5.40) 10^6/uL Hgb 11.5 L (12.0-16.0) g/dL Hct 35.8 L (36.0-48.0) % MCV 77.7 L (81.0-99.0) fL MCH 24.9 L (26.7-34.0) pg MCHC 32.1 (29.9-35.2) g/dL RDW 17.4 H (11.0-15.0) % Plt Count 373 (150-450) 10^3/uL MPV 10.6 (9.5-13.5) fL Neut % (Auto) 65.4 (43.0-75.0) % Lymph % (Auto) 25.9 (20.5-60.0) % [place] % (Auto) 5.8 (1.7-12.0) % Eos % (Auto) 1.6 (0.9-7.0) % Baso % (Auto) 1.0 (0.2-2.0) % Neut # (Auto) 5.2 (1.4-6.5) 10^3/uL Lymph # (Auto) 2.1 (1.2-3.8) 10^3/uL [place] # (Auto) 0.5 (0.3-0.8) 10^3/uL Eos # (Auto) 0.1 (0.0-0.7) 10^3/uL Baso # (Auto) 0.1 (0.0-0.1) 10^3/uL Abs Immat Gran (auto) 0.02 (0.00-0.03) 10^3/uL Imm/Tot Granulo (auto) 0.3 (0.0-0.5) % Sodium 137 (136-145) mmol/L Potassium 3.8 (3.5-5.1) mmol/L Chloride 105 (98-107) mmol/L Carbon Dioxide 27.9 (21.0-32.0) mmol/L Anion Gap 7.9 BUN 9.0 (7.0-18.0) mg/dL Creatinine 0.74 (0.55-1.02) mg/dL Est GFR ( Amer) >60 (>=60) Est GFR (Non-Af Amer) >60 (>=60) BUN/Creatinine Ratio 12.2 Glucose 100 (74-106) mg/dL Calcium 8.8 (8.5-10.1) mg/dL Serum HCG, Qual Negative (NEGATIVE) Discharge Plan Discharge Stand Alone Forms: Portal Instructions Chief Complaint: Dizziness Clinical Impression: Nausea and vomiting Patient Disposition: Home, Self-Care Time of Disposition Decision: 23:14 Condition: Good Mode of Transportation: Private Vehicle Prescriptions / Home Meds: New ondansetron 4 mg tablet,disintegrating 4 mg PO Q6H PRN (Reason: nausea and vomiting) Qty: 20 0RF No Action Digestive Advantage Prob Gummy 250 million cell tablet,chewable PO Debrox 6.5 % drops 5 drp otic (ear) BID 4 Days Qty: 15 0RF amoxicillin 500 mg capsule 500 mg PO Q12H 10 Days Qty: 20 0RF Print Language: Amharic Instructions: Acute Nausea and Vomiting (ED) Referrals: PAULA GIBSON [Primary Care Provider] - 1 week
[2024-02-14] MEDS: ONDANSETRON PF 4 MG/2 ML VIAL IV (22:35)
[2024-02-14] MEDS: 0.9 % SODIUM CHLORIDE 1,000 ML 1000 ML IV (22:35)
[2024-02-14 22:37] LABS: Basophils Absolute Auto 0.1 10^3/uL (0.0-0.1); Eosinophils Absolute Auto 0.1 10^3/uL (0.0-0.7); Eosinophils Percent Auto 1.6 % (0.9-7.0); Hematocrit 35.8 % (36.0-48.0); Hemoglobin 11.5 g/dL (12.0-16.0); Immature Granulocytes Abs Auto 0.02 10^3/uL (0.00-0.03); Immature Granulocytes Pct Auto 0.3 % (0.0-0.5); Lymphocytes Absolute Auto 2.1 10^3/uL (1.2-3.8); Lymphocytes Percent Auto 25.9 % (20.5-60.0); Mean Corpuscular HGB Conc 32.1 g/dL (29.9-35.2); Mean Corpuscular Hemoglobin 24.9 pg (26.7-34.0); Mean Corpuscular Volume 77.7 fL (81.0-99.0); Mean Platelet Volume 10.6 fL (9.5-13.5); Monocytes Absolute Auto 0.5 10^3/uL (0.3-0.8); Monocytes Percent Auto 5.8 % (1.7-12.0); Neutrophils Absolute Auto 5.2 10^3/uL (1.4-6.5); Neutrophils Percent Auto 65.4 % (43.0-75.0); Platelet Count 373 10^3/uL (150-450); Red Blood Count 4.61 10^6/uL (4.20-5.40); Red Cell Distribution Width 17.4 % (11.0-15.0)
[2024-02-14 22:47] LABS: Anion Gap 7.9; BUN Creatinine Ratio 12.2; Calcium 8.8 mg/dL (8.5-10.1); Carbon Dioxide 27.9 mmol/L (21.0-32.0); Chloride 105 mmol/L (98-107); Estimated GFR (African America >60 (>=60); Estimated GFR (Non-African Ame >60 (>=60); Glucose 100 mg/dL (74-106); Potassium 3.8 mmol/L (3.5-5.1); Sodium 137 mmol/L (136-145)
[2024-02-14 22:54] LABS: HCG Qualitative NEGATIVE (NEGATIVE); Internal Control Within Normal Limits
== END 2024-02-14 23:43 | disposition home or self-care (01) ==
PROVIDERS: Emergency Provider Emergency Medicine; PCP Family Medicine
DX: R11.2 Nausea with vomiting, unspecified (principal); F17.290 Nicotine dependence, other tobacco product, uncomplicated
CPT/HCPCS: 36415; 80048; 84703; 85025; 96361; 96374; 99284; J2405

== ENCOUNTER 2024-10-11 20:50 | Outpatient (REF) | payer OTHER, SELFPAY ==
--- OUTSIDE RECORDS SUMMARY | 2024-10-11 20:54 | XMS_ITS | CCD ---
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 Name Role Phone Travis Braswellie Unavailable GayatriRenzo Unavailable JORDI ., DR ROSENTHAL Admitting Unavailable [...] ROSENTHAL Consulting Unavailable JORDI ., DR ROSENTHAL Attending [...] Unavailable JORDI ., DR ROSENTHAL Admitting Unavailable [facility] Care Unavailable JORDI ., DR ROSENTHAL Consulting Unavailable JORDI ., DR ROSENTHAL Admitting Unavailable JORDI ., DR ROSENTHAL Attending Unavailable [facility] Unavailable JORDI ., DR ROSENTHAL Consulting Unavailable JORDI ., DR ROSENTHAL Admitting Unavailable COUNTS INCLUDE 234 BEDS AT THE [facility] Primary [facility] [place] Unavailable JORDI ., DR ROSENTHAL Attending Unavailable JORDI ., DR ROSENTHAL Consulting Unavailable ZIEBER, DR ALAN Ospina Consulting Unavailable JORDI ., DR ROSENTHAL Admitting Unavailable [facility] Unavailable JORDI ., DR ROSENTHAL Attending Unavailable JORDI ., DR ROSENTHAL Consulting Unavailable ZIEBER, DR ALAN Ospina Consulting Unavailable SABI Crocker Attending Provider Erin Crocker Unavailable Erin Crocker Admitting Unavailable Erin Crocker Attending Unavailable ALIZA GALLAGHER Referring Unavail able FRANCISCA PANDA [facility] Unavailable Medications Current Medications Medication Drug Class(es) Dates Sig (Normalized) Sig (Original) Ergocalciferol (1 source) Provitamin D2 Compound Start: 09-21-2024 Ergocalciferol (Vitamin D2) 1,250 mcg (50,000 unit) capsule Active PO September 21, 2024 12:00am FLUoxetine 10 mg oral capsule (1 source) Serotonin Reuptake Inhibitor Start: 09-21-2024 Fluoxetine 10 mg capsule Active MG PO September 21, 2024 12:00am ondansetron 4 mg oral tablet (5 sources) Serotonin-3 Receptor Antagonist Start: 02-05-2023 take 1 tablet by mouth three times daily as needed Zofran 4 MG 1 tablet Orally tid prn Jan, Active Zofran Not-Boy cox Zofran Active triamcinolone acetonide 1 mg/ml topical [...] sources) Magnesium Oxide Not-Taking Magnesium Oxide Active phentermine hydrochloride 37.5 mg oral tablet (1 source) Sympathomimetic Amine Anorectic Start: 09-21-2024 End: 09-21-2024 Phentermine 37.5 mg tablet Discontinued MG PO September 21, 2024 12:00am September 21, 2024 10:32am tobramycin 3 mg/ml ophthalmic solution (3 sources) [...] 12-02-2022 Episodic Other aftercare (1 source) Other exterminator termite (current) drug therapy; Translations: [OTH ALF CURRENT DRUG THERAPY] Onset: 12-12-2022 Episodic Other [...] Reference Range Facility CBC AND AUTO DIFFon 01-16-20 ABSOLUTE BASOPHIL 0.0 X10E9/L Normal 0.0-0.2 [facility] Comment on above: Performed By: #### C BCA, TSHR, CMP, 96435-3, 4-8, 9, 62646-2 #### [facility] ([id number]) [address], [address] [place] [address] ABSOLUTE NEUTROPHIL 3.6 X10E9/L Normal 1.5-6.6 [facility] Comment on above: Performed By: #### C BCA, TSHR, CMP, 30755-3, 2283-8, 9, 48931-4 #### [facility] ([id number]) [address], [address] [place] [address] Basophils/100 WBC (Bld) 0.6 % Normal [facility] Comment on above: Performed By: #### C BCA, TSHR, CMP, 85026-5, 228-8, 2131-9, 81843-2 #### [facility] ([id number]) [address] [address] [place] [address] Eosinophils (Bld) [#/Vol] 0.1 10*3/uL Normal 0.0-0.4 [facility] Comment on above: Performed By: #### C BCA, TSHR, CMP, 43899-6, 2284-8, 2132-04, 71404-1 #### [facility] ([id number]) [address], [address] [place] [address] Eosinophils/100 WBC (Bld) 1.2 % Normal [facility] Comment on above: Performed By: #### C BCA, TSHR, CMP, 17966-2, 8, 2132-04, 57429-4 #### [facility] ([id number]) [address], [facility] [address] [place] [address] Erythrocyte distribution width (RBC) [Ratio] 17.7 % High 11.5-15.0 [facility] Comment on above: Performed By: #### C BCA, TSHR, CMP, 50175-9, 2284-03, 2132-04, 32142-1 #### [facility] ([id number]) [address] [address] [place] [address] Hematocrit (Bld) [Volume fraction] 36.3 % Normal 35-47 [facility] Comment on above: Performed By: #### C BCA, TSHR, CMP, 47743-2, 2284-03, 2132-04, 39719-7 #### [facility] ([id number]) [address] [address] [place] [address] Hemoglobin (Bld) [Mass/Vol] 11.5 g/dL Low 11.7-15.5 [facility] Comment on above: Performed By: #### C BCA, TSHR, CMP, 36251-5, 2284-03, 2132-04, 54448-9 #### [facility] ([id number]) [address] [address] [place] [address] Lymphocytes (Bld) [#/Vol] 1.2 10*3/uL Normal 1.0-3.5 [facility] Comment on above: Performed By: #### C BCA, TSHR, CMP, 41394-2, 2284-03, 2132-04, 81073-0 #### [facility] ([id number]) [address], [address] [place] [address] Lymphocytes/100 WBC (Bld) 22.4 % Normal [facility] Comment on above: Performed By: #### C BCA, TSHR, CMP, 65734-2, 2283-8, 2132-04, 37154-7 #### [facility] ([id number]) [address], [address] [place] [address] MCH (RBC) [Entitic mass] 23.6 pg Low 27-34 [facility] Comment on above: Performed By: #### C BCA, TSHR, CMP, 58938-7, 2284-03, 2132-04, 30690-3 #### [facility] ([id number]) [address], [address] [place] [address] MCHC (RBC) [Mass/Vol] 31.7 g/dL Low 32-36 [facility] Comment on above: Performed By: #### C BCA, TSHR, CMP, 35969-9, 2284-03, 2132-04, 57923-9 #### [facility] ([id number]) [address], [address] [place] [address] MCV (RBC) [Entitic vol] 75 fL Low 80-100 [facility] Comment on above: Performed By: #### C BCA, TSHR, CMP, 09665-6, 2284-03, 2132-04, 44796-2 #### [facility] ([id number]) [address], [address] [place] [address] Monocytes (Bld) [#/Vol] 0.5 10*3/uL Normal 0-0.9 [facility] Comment on above: Performed By: #### C BCA, TSHR, CMP, 71074-7, 2284-03, 2132-04, 46221-4 #### [facility] ([id number]) [address], [address] [place] [address] Monocytes/100 WBC (Bld) 8.8 % Normal [facility] Comment on above: Performed By: #### C BCA, TSHR, CMP, 17736-1, 2284-8, 2131-9, 74687-8 #### [facility] ([id number]) [address], [address] [place] [address] Neutrophils/100 WBC (Bld) 67.0 % Normal [facility] Comment on above: Performed By: #### C BCA, TSHR, CMP, 32400-9, 2284-8, 2131-9, 37794-7 #### [facility] ([id number]) [address], [address] [place] [address] Platelet mean volume (Bld) [Entitic vol] 8.7 fL Normal 7-12 [facility] Comment on above: Performed By: #### C BCA, TSHR, CMP, 05459-1, 2284-8, 2131-9, 41476-0 #### [facility] ([id number]) [address], [address] [place] [address] Platelets (Bld) [#/Vol] 396 10*3/uL Normal 150-450 [facility] Comment on above: Performed By: #### C BCA, TSHR, CMP, 52387-1, 2284-8, 9, 38258-4 #### [facility] ([id number]) [address], [address] [place] [address] RBC COUNT 4.87 X10E12/L Normal 3.80-5.20 [facility] Comment on above: Performed By: #### C BCA, TSHR, CMP, 25617-0, 2284-8, 2131-9, 31969-7 #### [facility] ([id number]) [address], [address] [place] [address] WBC (Bld) [#/Vol] 5.3 10*3/uL Normal 4.0-11.0 [facility] Comment on above: Performed By: #### C BCA, TSHR, CMP, 57567-2, 2284-8, 2131-9, 27090-9 #### [facility] ([id number]) [address], [address] [place] [address] COMPREHENSIVE METABOLIC PANE Basilio 01-16-2024 Albumin [Mass/Vol] 4.2 g/dL Normal 3.2-5.3 [facility] Comment on above: Performed By: #### C BCA, TSHR, CMP, 55131-4, 2284-8, 2131-9, 10158-0 #### [facility] ([id number]) [address], [address] [place] [address] ALP [Catalytic activity/Vol] 84 U/L Normal 39-130 [facility] Comment on above: Performed By: #### C BCA, TSHR, CMP, 12686-8, 2284-8, 2131-9, 39456-0 #### [facility] ([id number]) [address], [address] [place] [address] ALT [Catalytic activity/Vol] 25 U/L Normal 0-31 [facility] Comment on above: Performed By: #### C BCA, TSHR, CMP, 23304-8, 2284-8, 2131-9, 95668-4 #### [facility] ([id number]) [address], [address] [place] [address] Anion gap [Moles/Vol] 8 mmol/L Normal 5-15 [facility] Comment on above: Performed By: #### C BCA, TSHR, CMP, 03762-8, 2284-8, 2131-9, 96238-0 #### [facility] ([id number]) [address], [address] [place] [address] AST [Catalytic activity/Vol] 21 U/L Normal 0-41 [facility] Comment on above: Performed By: #### C BCA, TSHR, CMP, 01591-4, 2284-8, 9, 10289-4 #### [facility] ([id number]) [address], [address] [place] [address] Bilirubin [Mass/Vol] 0.7 mg/dL Normal 0.3-1.2 [facility] Comment on above: Performed By: #### C BCA, TSHR, CMP, 68743-4, 2283-8, 9, 84240-8 #### [facility] ([id number]) [address], [address] [place] [address] Calcium [Mass/Vol] 9.1 mg/dL Normal 8.5-10.5 [facility] Comment on above: Performed By: #### C BCA, TSHR, CMP, 95995-5, 2283-8, 2132-04, 27348-4 #### [facility] ([id number]) [address], [address] [place] [address] Chloride [Moles/Vol] 105 mmol/L Normal 98-109 [facility] Comment on above: Performed By: #### C BCA, TSHR, CMP, 19811-8, 2283-8, 2132-04, 96456-2 #### [facility] ([id number]) [address], [address] [place] [address] CO2 [Moles/Vol] 25 mmol/L Normal 22-32 [facility] Comment on above: Performed By: #### C BCA, TSHR, CMP, 25469-9, 228-8, 2132-04, 00971-5 #### [facility] ([id number]) [address], [address] [place] [address] Creatinine [Mass/Vol] 0.61 mg/dL Normal 0.40-1.00 [facility] Comment on above: Result Comment: METH OD TRACEABLE TO IDMS STANDARD Performed By: #### C BCA, TSHR, CMP, 36794-8, 8, 2132-04, 09997-9 #### [facility] ([id number]) [address], [address] [place] [address] eGFR (CKD-EPI) NON-RACE DEPENDENT >90 Normal >59 [facility] Comment on above: Result Comment: Reported eGFR is based on the CKD-EPI 2020 equation that does not use a race coefficient. Performed By: #### C BCA, TSHR, CMP, 77862-3, 2284-03, 2132-04, 36202-7 #### [facility] ([id number]) [address], [address] [place] [address] Glucose [Mass/Vol] 87 mg/dL Normal 65-99 [facility] Comment on above: Performed By: #### C BCA, TSHR, CMP, 21240-4, 8, 2132-04, 57207-9 #### [facility] ([id number]) [address], [address] [place] [address] Potassium [Moles/Vol] 3.9 mmol/L Normal 3.5-5.0 [facility] Comment on above: Performed By: #### C BCA, TSHR, CMP, 36707-6, 8, 2132-04, 26182-4 #### [facility] ([id number]) [address], [address] [place] [address] Protein [Mass/Vol] 7.3 g/dL Normal 6.0-8.0 [facility] Comment on above: Performed By: #### C BCA, TSHR, CMP, 14449-0, 8, 9, 90117-2 #### [facility] ([id number]) [address], [address] [place] [address] Sodium [Moles/Vol] 138 mmol/L Normal 134-146 [facility] Comment on above: Performed By: #### C BCA, TSHR, CMP, 79180-0, 2284-8, 2131-9, 39231-5 #### [facility] ([id number]) [address], [address] [place] [address] Urea nitrogen [Mass/Vol] 15 mg/dL Normal 5-23 [facility] Comment on above: Performed By: #### C BCA, TSHR, CMP, 42824-7, 2284-8, 2131-9, 35193-8 #### [facility] ([id number]) [address], [address] [place] [address] Folate [Mass/Vol]on 01-16-20 24 FOLIC ACID 7.5 ng/mL Normal >5.8 [facility] Comment on above: Result Comment: NEW REFERENCE RANGE Performed By: #### C BCA, TSHR, CMP, 63689-2, 2284-8, 2131-9, 57268-3 #### [facility] ([id number]) [address], [address] [place] [address] Lipid 1996 panelon 4 Cholesterol [Mass/Vol] 173 mg/dL Normal 150-200 [facility] Comment on above: Performed By: #### C BCA, TSHR, CMP, 65588-2, 2284-8, 2131-9, 68916-5 #### [facility] ([id number]) [address], [address] [place] [address] Cholesterol in HDL [Mass/Vol] 64 mg/dL Normal >39 [facility] Comment on above: Result Comment: HDL <40 mg/dL - High Risk HDL > or = 40mg/dL- Desirable HDL >60 mg/dL - Negative Risk Performed By: #### C BCA, TSHR, CMP, 92853-0, 2284-8, 9, 97076-2 #### [facility] ([id number]) [address], [address] [address] Cholesterol in LDL [Mass/Vol] 94 mg/dL Normal <130 [facility] Comment on above: Result Comment: LDL <100 mg/dL - Desirable LDL >160 mg/dL - High Risk Performed By: #### C BCA, TSHR, CMP, 35731-4, 2283-8, 9, 49418-7 #### [facility] ([id number]) [address], [address] [address] Cholesterol in VLDL [Mass/Vol] 15 mg/dL Normal 0-30 [facility] Comment on above: Performed By: #### C BCA, TSHR, CMP, 07711-3, 2284-8, 9, 73037-6 #### [facility] ([id number]) [address] [address] CHOLESTEROL:HDL 2.7 Normal 1.0-5.0 [facility] Comment on above: Performed By: #### C BCA, TSHR, CMP, 72497-7, 2284-8, 9, 40467-6 #### [facility] ([id number]) [address] [address] Triglyceride [Mass/Vol] 74 mg/dL Normal 27-150 [facility] Comment on above: Performed By: #### C BCA, TSHR, CMP, 41930-5, 2284-8, 2131-9, 92949-0 #### [facility] ([id number]) [address] [place] [address] TSH WITH REFLEXon 01-16-2024 TSH 0.87 uIU/mL Normal 0.49-4.67 [facility] Comment on above: Performed By: #### C BCA, TSHR, [facility], 00554-6, 4-8, 9, 23986-1 #### [facility] ([id number]) [address] [facility], [address] [place] [address] VITAMIN B12on 01-16-2024 Cobalamin (Vitamin B12) [Mass/Vol] 416 pg/mL Normal 180-914 [facility] Comment on above: Performed By: #### C BCA, TSHR, [facility], 10008-9, 8, 2132-04, 55109-1 #### [facility] ([id number]) [address] [facility], [address] [place] [address] Vitamin D+Metabolites [Mass/ Vol]on 01-16-2024 VITAMIN D 25 HYD TOT 16.6 ng/mL Low 30-100 [facility] Comment on above: Result Comment: Vitamin D status 25 [place] Vitamin D Deficiency <20 ng/mL Insufficiency 20-29 ng/mL Sufficiency 30-100 ng/mL Toxicity >100 ng/mL NOTE: A pediatric reference range has not been established by the rn unit manager of this kit. The [place] [employer] recommends a Vitamin D level of = or >20ng/mL in infants and children. Performed By: #### C BCA, TSHR, [facility], 12218-4, 2283-8, 9, 21857-6 #### [facility] ([id number]) [address], [address] [place] [address] COVID + FLU Quick Testingon 02-05-2023 SARS-CoV-2 (COVID-19) RNA ANNI+probe Ql (Unsp spec) Negative [employer] Other COVID + FLU Quick Testing Negative [employer] Other Test, Urineon 01-10 Beta HCG ( test) Ql (U) Negative [employer] Other Urinalysis - AUTOMATEDon Appearance (U) clear [employer] Other Bilirubin Ql (U) Negative [employer] Other Color (U) yellow [employer] Other Glucose Ql (U) Negative [employer] Other Hemoglobin Ql (U) Negative [employer] Other Ketones Ql (U) Negative [employer] Other Leukocyte esterase Test strip Ql (U) large [employer] Other Nitrite Ql (U) Negative [employer] Other pH (U) 7.0 [pH] [employer] Other Protein Ql (U) Negative [employer] Other Specific gravity (U) [Rel density] 1.015 [employer] Other Urobilinogen (U) [Mass/Vol] 0.2 mg/dL [employer] Other Urinalysis - AUTOMATED [employer] Other Urine Cultureon 02-05-2023 Bacteria identified Cx Nom (U) Reason for Exam Nausea Urine <9,000 colonies/ml mixed bacterial skin contaminants 2 Days PERFORMED BY: [place] [id number] PATHOLOGIST CONTRACT LEAD CAITLIN MADDEN M.D. Normal [facility] Comment on above: Performed By: #### C UU #### [address] ANTIBODY ID PANELon 12-09-19 ANTIBODY ID PANEL Antibody ID Anti-c Normal [facility] Comment on above: Performed By: #### H BSANS #### [facility] [address] [place] [address] Dr. Kimberly Bocanegra CBC AUTO DIFFon 12-03-2022 BASO # 0.1 103/ul Normal 0.0-0.1 [facility] Comment on above: Performed By: #### R UBIGG #### [facility] [address] [place] [address] Dr. Kimberly Bocanegra Basophils/100 WBC (Bld) 0.3 % Normal 0.2-2.0 [facility] Comment on above: Performed By: #### R UBIGG #### [facility] [address] [place] [address] Dr. Kimberly Bocanegra EO # 0.1 103/ul Normal 0.0-0.7 [facility] Comment on above: Performed By: #### R UBIGG #### [facility] [address] [place] [address] Dr. Kimberly Bocanegra Eosinophils/100 WBC (Bld) 0.6 % Critically low 0.9-7.0 [facility] Comment on above: Performed By: #### R UBIGG #### [facility] [address] [place] [address] Dr. Kimberly Bocanegra Erythrocyte distribution width (RBC) [Ratio] 16.4 % Critically high 11.0-15.0 [facility] Comment on above: Performed By: #### R UBIGG #### [facility] [address] [place] [address] Dr. Kimberly Bocanegra Hematocrit (Bld) [Volume fraction] 24.5 % Critically low 36.0-48.0 [facility] Comment on above: Performed By: #### R UBIGG #### [facility] [address] [place] [address] Dr. Kimberly Bocanegra Hemoglobin (Bld) [Mass/Vol] 7.3 g/dL Critically low 12.0-16.0 [facility] Comment on above: Performed By: #### R UBIGG #### [facility] [address] [address] [address] Kimberly Bocanegra IG # 0.05 10e3/ul Critically high 0.00-0.03 [facility] Comment on above: Performed By: #### R UBIGG #### [facility] [address] [address] [address] Kimberly Bocanegra IG % 0.3 % Normal 0.0-0.5 [facility] Comment on above: Performed By: #### R UBIGG #### [facility] [address] [address] [address] Kimberly Bocanegra LYMPH # 1.9 103/ul Normal 1.2-3.8 [facility] Comment on above: Performed By: #### R UBIGG #### [facility] [address] [place] [address] Dr. Kimberly Bocanegra Lymphocytes/100 WBC (Bld) 13.2 % Critically low 20.5-60.0 [facility] Comment on above: Performed By: #### R UBIGG #### [facility] [address] [address] [address] Kimberly Bocanegra MANUAL DIFF REQ NO Normal [facility] Comment on above: Performed By: #### R UBIGG #### [facility] [address] [address] [address] Kimberly Bocanegra MCH (RBC) [Entitic mass] 21.3 pg Critically low 26.7-34.0 [facility] Comment on above: Performed By: #### R UBIGG #### [facility] [address] [address] [address] Kimberly Bocanegra MCHC (RBC) [Mass/Vol] 29.8 g/dL Critically low 29.9-35.2 [facility] Comment on above: Performed By: #### R UBIGG #### [facility] [address] [address] [address] Kimberly Bocanegra MCV (RBC) [Entitic vol] 71.4 fL Critically low 81.0-99.0 [facility] Comment on above: Performed By: #### R UBIGG #### [facility] [address] [address] [address] Kimberly Bocanegra MONO # 1.0 103/ul Critically high 0.3-0.8 [facility] Comment on above: Performed By: #### R UBIGG #### [facility] [address] [address] [address] Kimberly Bocanegra Monocytes/100 WBC (Bld) 6.7 % Normal 1.7-12.0 [facility] Comment on above: Performed By: #### R UBIGG #### [facility] [address] [address] [address] Kimberly Bocanegra NEUT # 11.3 103/ul Critically high 1.4-6.5 [facility] Comment on above: Performed By: #### R UBIGG #### [facility] [address] [address] [address] Kimberly Bocanegra Neutrophils/100 WBC (Bld) 78.9 % Critically high 43.0-75.0 [facility] Comment on above: Performed By: #### R UBIGG #### [facility] [address] [address] [address] Kimberly Bocanegra Platelet mean volume (Bld) [Entitic vol] 10.0 fL Normal 9.5-13.5 [facility] Comment on above: Performed By: #### R UBIGG #### [facility] [address] [address] [address] Kimberly Bocanegra PLT 348 103/ul Normal 150-450 [facility] Comment on above: Performed By: #### R UBIGG #### [facility] [address] [address] [address] Kimberly Bocanegra RBC 3.43 106/ul Critically low 4.20-5.40 [facility] Comment on above: Performed By: #### R UBIGG #### [facility] [address] [address] [address] Kimberly Bocanegra WBC 14.3 103/ul Critically high 4.0-11.0 [facility] Comment on above: Performed By: #### R UBIGG #### [facility] [address] [place] [address] Dr. Kimberly oBcanegra CBC AUTO DIFFon 12-02-2022 BASO # 0.0 103/ul Normal 0.0-0.1 [facility] Comment on above: Performed By: #### R UBIGG #### [facility] [address] [place] [address] Dr. Kimberly Bocanegra Basophils/100 WBC (Bld) 0.5 % Normal 0.2-2.0 [facility] Comment on above: Performed By: #### R UBIGG #### [facility] [address] [place] [address] Dr. Kimberly Bocanegra EO # 0.1 103/ul Normal 0.0-0.7 [facility] Comment on above: Performed By: #### R UBIGG #### [facility] [address] [place] [address] Dr. Kimberly Bocanegra Eosinophils/100 WBC (Bld) 1.3 % Normal 0.9-7.0 [facility] Comment on above: Performed By: #### R UBIGG #### [facility] [address] [place] [address] Dr. Kimberly Bocanegra Erythrocyte distribution width (RBC) [Ratio] 16.3 % Critically high 11.0-15.0 [facility] Comment on above: Performed By: #### R UBIGG #### [facility] [address] [place] [address] Dr. Kimberly Bocanegra Hematocrit (Bld) [Volume fraction] 29.9 % Critically low 36.0-48.0 [facility] Comment on above: Performed By: #### R UBIGG #### [facility] [address] [place] [address] Dr. Kimberly Bocanegra Hemoglobin (Bld) [Mass/Vol] 9.1 g/dL Critically low 12.0-16.0 [facility] Comment on above: Performed By: #### R UBIGG #### [facility] [address] [place] [address] Dr. Kimberly Bocanegra IG # 0.05 10e3/ul Critically high 0.00-0.03 [facility] Comment on above: Performed By: #### R UBIGG #### [facility] [address] [address] [address] Kimberly Bocanegra IG % 0.6 % Critically high 0.0-0.5 [facility] Comment on above: Performed By: #### R UBIGG #### [facility] [address] [address] [address] Kimberly Bocanegra LYMPH # 3.0 103/ul Normal 1.2-3.8 [facility] Comment on above: Performed By: #### R UBIGG #### [facility] [address] [place] [address] Dr. Kimberly Bocanegra Lymphocytes/100 WBC (Bld) 33.8 % Normal 20.5-60.0 [facility] Comment on above: Performed By: #### R UBIGG #### [facility] [address] [address] [address] Kimberly Bocanegra MANUAL DIFF REQ NO Normal [facility] Comment on above: Performed By: #### R UBIGG #### [facility] [address] [address] [address] Kimberly Bocanegra MCH (RBC) [Entitic mass] 21.0 pg Critically low 26.7-34.0 [facility] Comment on above: Performed By: #### R UBIGG #### [facility] [address] [address] [address] Kimberly Bocanegra MCHC (RBC) [Mass/Vol] 30.4 g/dL Normal 29.9-35.2 [facility] Comment on above: Performed By: #### R UBIGG #### [facility] [address] [place] [address] Dr. Kimberly Bocanegra MCV (RBC) [Entitic vol] 69.1 fL Critically low 81.0-99.0 [facility] Comment on above: Performed By: #### R UBIGG #### [facility] [address] [place] [address] Dr. Kimberly Bocanegra MONO # 0.4 103/ul Normal 0.3-0.8 [facility] Comment on above: Performed By: #### R UBIGG #### [facility] [address] [address] [address] Kimberly Bocanegra Monocytes/100 WBC (Bld) 4.8 % Normal 1.7-12.0 [facility] Comment on above: Performed By: #### R UBIGG #### [facility] [address] [place] [address] Dr. Kimberly Bocanegra NEUT # 5.2 103/ul Normal 1.4-6.5 [facility] Comment on above: Performed By: #### R UBIGG #### [facility] [address] [place] [address] Dr. Kimberly Bocanegra Neutrophils/100 WBC (Bld) 59.0 % Normal 43.0-75.0 [facility] Comment on above: Performed By: #### R UBIGG #### [facility] [address] [place] [address] Dr. Kimberly Bocanegra Platelet mean volume (Bld) [Entitic vol] 10.4 fL Normal 9.5-13.5 [facility] Comment on above: Performed By: #### R UBIGG #### [facility] [address] [place] [address] Dr. Kimberly Bocanegra PLT 459 103/ul Critically high 150-450 [facility] Comment on above: Performed By: #### R UBIGG #### [facility] [address] [place] [address] Dr. Kimberly Bocanegra RBC 4.33 106/ul Normal 4.20-5.40 [facility] Comment on above: Performed By: #### R UBIGG #### [facility] [address] [place] [address] Dr. Kimberly Bocanegra WBC 8.7 103/ul Normal 4.0-11.0 [facility] Comment on above: Performed By: #### R UBIGG #### [facility] [address] [place] [address] Dr. Kimberly Bocanegra DIRECT COOMBSon 12-02-2022 DIRECT MILES Negative Normal The [facility] Comment on above: Performed By: #### H BSANS #### [facility] [address] [place] [address] Dr. Kimberly Bocanegra DRUG SCREEN RAPID (URINE)on 12-02-2022 AMP Negative Normal NEGATIVE [facility] Comment on above: Performed By: #### H BSANS #### [facility] [address] [address] [address] Kimberly Bocanegra BAR Negative Normal NEGATIVE [facility] Comment on above: Performed By: #### H BSANS #### [facility] [address] [place] [address] Dr. Kimberly Bocanegra BUP Negative Normal NEGATIVE [facility] Comment on above: Performed By: #### H BSANS #### [facility] [address] [place] [address] Dr. Kimberly Boacnegra BZO Negative Normal NEGATIVE [facility] Comment on above: Performed By: #### H BSANS #### [facility] [address] [place] [address] Dr. Kimberly Bocanegra TONO Negative Normal NEGATIVE [facility] Comment on above: Performed By: #### H BSANS #### [facility] [address] [place] [address] Dr. Kimberly Bocanegra CUT-OFFS SEE BELOW Normal [facility] Comment on above: Result Comment: AMP (Amphetamine): 500ng/mL, BAR (Barbituates): 200 ng/mL, BZO (Benzodiazepines): 150 ng/mL, BUP (Buprenorphine): 10 ng/mL, TONO (Cocaine): 150 ng/mL, mAMP (Methamphetamine): 500 ng/mL, MTD (Methadone): 200 ng/mL, OPI (Opiates): 100 ng/mL, OXY (Oxycodone): 100 ng/mL, PCP (Phencyclidine): 25 ng/mL, PPX (Propoxyphene): 300 ng/mL, THC (Cannabinoids): 50 ng/mL, TCA (Trycyclic Antidepressants): 300 ng/mL Performed By: #### H BSANS #### [facility] [address] [address] [address] Kimberly Bocanegra DRUG CUT HEADER DRUG CLASS TEST SYSTEM CUT-OFF CONCENTRATIONS ARE FOLLOWS: Normal [facility] Comment on above: Performed By: #### H BSANS #### [facility] [address] [address] [address] Kimberly Bocanegra mAMP Negative Normal NEGATIVE [facility] Comment on above: Performed By: #### H BSANS #### [facility] [address] [address] [address] Kimberly Bocanegra MTD Negative Normal NEGATIVE [facility] Comment on above: Performed By: #### H BSANS #### [facility] [address] [place] [address] Dr. Kimberly Bocanegra OPI Negative Normal NEGATIVE [facility] Comment on above: Performed By: #### H BSANS #### [facility] [address] [place] [address] Dr. Kimberly Bocanegra OXY Negative Normal NEGATIVE [facility] Comment on above: Performed By: #### H BSANS #### [facility] [address] [address] [address] Kimberly Bocanegra PCP Negative Normal NEGATIVE [facility] Comment on above: Performed By: #### H BSANS #### [facility] [address] [place] [address] Dr. Kimberly Bocanegra PPX Negative Normal NEGATIVE [facility] Comment on above: Performed By: #### H BSANS #### [facility] [address] [place] [address] Dr. Kimberly Bocanegra TCA Negative Normal NEGATIVE [facility] Comment on above: Performed By: #### H BSANS #### [facility] [address] [address] [address] Kimberly Bocanegra THC Negative Normal NEGATIVE [facility] Comment on above: Performed By: #### H BSANS #### [facility] [address] [place] [address] Dr. Kimberly Bocanegra TYPE AND SCREENon 12-02-2022 TYPE AND SCREEN Positive Normal [facility] Comment on above: Performed By: #### T NS #### [facility] [address] [address] [address] Kimberly Bocanegra GROUP B STREP CULTUREon 04- S. agalactiae Ag Ql (Unsp spec) Culture Observations: NEGATIVE FOR GROUP B STREPTOCOCCUS. [facility] Comment on above: Performed By: #### H BSANS #### [facility] [address] [address] [address] Kimberly Bocanegra PAP ACOG PANEL 2: 21 to 30on 09-10-2022 . . Normal [facility] Comment on above: Performed By: #### R UBIGG #### [facility] [address] [place] [address] Dr. Kimberly Bocanegra Age Gdln ACOG Testing - [facility] Comment on above: Performed By: #### R UBIGG #### [facility] [address] [place] [address] Dr. Kimberly Bocanegra DIAGNOSIS: Comment [facility] Comment on above: Result Comment: NEGA TIVE FOR INTRAEPITHELIAL LESION OR MALIGNANCY. Performed By: #### R UBIGG #### [facility] [address] [place] [address] Dr. Kimberly Bocanegra Methodology: Comment [facility] Comment on above: Result Comment: This liquid based ThinPrep(R) pap test was screened with the use of an image guided system. Performed By: #### R UBIGG #### [facility] [address] [place] [address] Dr. Kimberly Bocanegra Note: Comment [facility] Comment on above: Result Comment: The Pap smear is a screening test designed to aid in the detection of premalignant and malignant conditions of the uterine cervix. It is not a diagnostic procedure and should not be used as the sole means of detecting cervical cancer. Both false-positive and false-negative reports do occur. . Performed By: #### R UBIGG #### [facility] [address] [place] [address] Dr. Kimberly Bocanegra Performed by: Comment [facility] Comment on above: Result Comment: Dario Lopez Assistant Front Desk Manager (ASCP) Performed By: #### R UBIGG #### [facility] [address] [place] [address] Dr. Kimberly Bocanegra Reflex Criteria: Comment Normal [facility] Comment on above: Result Comment: The HPV DNA reflex criteria were not met with this specimen result therefore, no HPV testing was performed. . Performed By: #### R UBIGG #### [facility] [address] [place] [address] Dr. Kimberly Bocanegra Specimen adequacy: Comment Normal [facility] Comment on above: Result Comment: Sati sfactory for evaluation. No endocervical component is identified. Performed By: #### R UBIGG #### [facility] [address] [place] [address] Dr. Kimberly Bocanegra CHLAMYDIA/GONOCOCCUS ANNI (SW AB/URINE/PAPon 09-08-2022 Chlamydia trachomatis, ANNI Negative Normal Negative [facility] Comment on above: Performed By: #### B MP #### [facility] [address] [place] [address] Dr. Kimberly Bocanegra Neisseria gonorrhoeae, ANNI Negative Normal Negative [facility] Comment on above: Performed By: #### B MP #### [facility] [address] [place] [address] Dr. Kimberly Bocanegra VAGINITIS/VAGINOSIS DNA PROB George 09-06-2022 Linda species Negative Normal Negative [facility] Comment on above: Performed By: #### H BSANS #### [facility] [address] [place] [address] Dr. Kimberly Bocanegra Gardnerella vaginalis Negative Normal Negative [facility] Comment on above: Performed By: #### H BSANS #### [facility] [address] [place] [address] Dr. Kimberly Bocanegra Trichomonas vaginalis Negative Normal Negative [facility] Comment on above: Performed By: #### H BSANS #### [facility] [address] [place] [address] Dr. Kimberly Bocanegra CBC AUTO DIFFon 08-17-2022 BASO # 0.0 103/ul Normal 0.0-0.1 [facility] Comment on above: Performed By: #### H BSANS #### [facility] [address] [address] [address] Kimberly Bocanegra Basophils/100 WBC (Bld) 0.4 % Normal 0.2-2.0 [facility] Comment on above: Performed By: #### H BSANS #### [facility] [address] [place] [address] Dr. Kimberly Bocanegra EO # 0.1 103/ul Normal 0.0-0.7 [facility] Comment on above: Performed By: #### H BSANS #### [facility] [address] [place] [address] Dr. Kimberly Bocanegra Eosinophils/100 WBC (Bld) 1.0 % Normal 0.9-7.0 [facility] Comment on above: Performed By: #### H BSANS #### [facility] [address] [place] [address] Dr. Kimberly Bocanegra Erythrocyte distribution width (RBC) [Ratio] 13.4 % Normal 11.0-15.0 [facility] Comment on above: Performed By: #### H BSANS #### [facility] [address] [place] [address] Dr. Kimberly Bocanegra Hematocrit (Bld) [Volume fraction] 29.2 % Critically low 36.0-48.0 [facility] Comment on above: Performed By: #### H BSANS #### [facility] [address] [place] [address] Dr. Kimberly Bocanegra Hemoglobin (Bld) [Mass/Vol] 10.5 g/dL Critically low 12.0-16.0 [facility] Comment on above: Performed By: #### H BSANS #### [facility] [address] [place] [address] Dr. Kimberly Bocanegra IG # 0.05 10e3/ul Critically high 0.00-0.03 [facility] Comment on above: Performed By: #### H BSANS #### [facility] [address] [place] [address] Dr. Kimberly Bocanegra IG % 0.5 % Normal 0.0-0.5 [facility] Comment on above: Performed By: #### H BSANS #### [facility] [address] [address] [address] Kimberly Bocanegra LYMPH # 2.2 103/ul Normal 1.2-3.8 [facility] Comment on above: Performed By: #### H BSANS #### [facility] [address] [address] [address] Kimberly Bocanegra Lymphocytes/100 WBC (Bld) 23.1 % Normal 20.5-60.0 [facility] Comment on above: Performed By: #### H BSANS #### [facility] [address] [place] [address] Dr. Kimberly Bocanegra MANUAL DIFF REQ NO Normal [facility] Comment on above: Performed By: #### H BSANS #### [facility] [address] [place] [address] Dr. Kimberly Bocanegra MCH (RBC) [Entitic mass] 27.2 pg Normal 26.7-34.0 [facility] Comment on above: Performed By: #### H BSANS #### [facility] [address] [place] [address] Dr. Kimberly Bocanegra MCHC (RBC) [Mass/Vol] 36.0 g/dL Critically high 29.9-35.2 [facility] Comment on above: Performed By: #### H BSANS #### [facility] [address] [place] [address] Dr. Kimberly Bocanegra MCV (RBC) [Entitic vol] 75.6 fL Critically low 81.0-99.0 [facility] Comment on above: Performed By: #### H BSANS #### [facility] [address] [place] [address] Dr. Kimberly Bocanegra MONO # 0.7 103/ul Normal 0.3-0.8 [facility] Comment on above: Performed By: #### H BSANS #### [facility] [address] [address] [address] Kimberly Bocanegra Monocytes/100 WBC (Bld) 7.2 % Normal 1.7-12.0 [facility] Comment on above: Performed By: #### H BSANS #### [facility] [address] [address] [address] Kimberly Bocanegra NEUT # 6.3 103/ul Normal 1.4-6.5 [facility] Comment on above: Performed By: #### H BSANS #### [facility] [address] [address] [address] Kimberly Bocanegra Neutrophils/100 WBC (Bld) 67.8 % Normal 43.0-75.0 [facility] Comment on above: Performed By: #### H BSANS #### [facility] [address] [address] [address] Kimberly Bocanegra Platelet mean volume (Bld) [Entitic vol] 9.8 fL Normal 9.5-13.5 [facility] Comment on above: Performed By: #### H BSANS #### [facility] [address] [address] [address] Kimberly Bocanegra PLT 375 103/ul Normal 150-450 [facility] Comment on above: Performed By: #### H BSANS #### [facility] [address] [address] [address] Kimberly Bocanegra RBC 3.86 106/ul Critically low 4.20-5.40 [facility] Comment on above: Performed By: #### H BSANS #### [facility] [address] [address] [address] Kimberly Bocanegra WBC 9.3 103/ul Normal 4.0-11.0 [facility] Comment on above: Performed By: #### H BSANS #### [facility] [address] [address] [address] Kimberly Bocanegra GLUCOSE - 1HRon 08-17-2022 Glucose [Mass/Vol] 70 mg/dL Critically low 74-106 [facility] Comment on above: Performed By: #### H BSANS #### [facility] [address] [address] [address] Kimberly Bocanegra US PREG INCOMPLETE ANATOMYon [...] by: ALAN CHUN Date: 2022-08-17 19:06 Normal [facility] COVID/FLU/RSV RT-PCRon 08-15 SARS-CoV-2 (COVID-19) RNA ANNI+probe Ql (Unsp spec) Negative [place] [facility] Other COVID/FLU/RSV RT-PCR Negative [facility] Other US PREG ANATOMY SINGLEon US PREG [...] ALAN CHUN Date: 2022-07-29 16:31 Normal [facility] CULTURE URINEon 07-08-2022 CULTURE URINE Culture Observations: NO GROWTH. Normal [facility] Comment on above: Performed By: #### U RCX #### [facility] [address] [place] [address] Dr. Kimberly Bocanegra JEN BOX TEST PT SEND OUTo n 06-10-2022 SENT TO REF LAB 06/10/2022 Normal [facility] Comment on above: Performed By: #### B MP #### [facility] [address] [place] [address] Dr. Kimberly Bocanegra CULTURE URINEon 05-31-2022 CULTURE URINE Culture Observations: GREATER THAN TWO ORGANISMS PRESENT. PLEASE RESUBMIT CLEAN CATCH MID-STREAM URINE IF CLINICALLY INDICATED. Normal [facility] Comment on above: Performed By: #### U RCX #### [facility] [address] [place] [address] Dr. Kimberly Bocanegra CBC AUTO DIFFon 05-30-2022 BASO # 0.0 103/ul Normal 0.0-0.1 [facility] Comment on above: Performed By: #### R UBIGG #### [facility] [address] [place] [address] Dr. Kimberly Bocanegra Basophils/100 WBC (Bld) 0.3 % Normal 0.2-2.0 [facility] Comment on above: Performed By: #### R UBIGG #### [facility] [address] [place] [address] Dr. Kimberly Bocanegra EO # 0.1 103/ul Normal 0.0-0.7 [facility] Comment on above: Performed By: #### R UBIGG #### [facility] [address] [place] [address] Dr. Kimberly Bocanegra Eosinophils/100 WBC (Bld) 1.1 % Normal 0.9-7.0 [facility] Comment on above: Performed By: #### R UBIGG #### [facility] [address] [place] [address] Dr. Kimberly Bocanegra Erythrocyte distribution width (RBC) [Ratio] 14.1 % Normal 11.0-15.0 [facility] Comment on above: Performed By: #### R UBIGG #### [facility] [address] [place] [address] Dr. Kimberly Bocanegra Hematocrit (Bld) [Volume fraction] 37.8 % Normal 36.0-48.0 [facility] Comment on above: Performed By: #### R UBIGG #### [facility] [address] [place] [address] Dr. Kimberly Bocanegra Hemoglobin (Bld) [Mass/Vol] 12.3 g/dL Normal 12.0-16.0 [facility] Comment on above: Performed By: #### R UBIGG #### [facility] [address] [place] [address] Dr. Kimberly Bocanegra IG # 0.04 10e3/ul Critically high 0.00-0.03 [facility] Comment on above: Performed By: #### R UBIGG #### [facility] [address] [place] [address] Dr. Kimberly Bocanegra IG % 0.5 % Normal 0.0-0.5 [facility] Comment on above: Performed By: #### R UBIGG #### [facility] [address] [place] [address] Dr. Kimberly Bocanegra LYMPH # 1.6 103/ul Normal 1.2-3.8 [facility] Comment on above: Performed By: #### R UBIGG #### [facility] [address] [place] [address] Dr. Kimberly Bocanegra Lymphocytes/100 WBC (Bld) 18.3 % Critically low 20.5-60.0 [facility] Comment on above: Performed By: #### R UBIGG #### [facility] [address] [place] [address] Dr. Kimberly Bocanegra MANUAL DIFF REQ NO Normal [facility] Comment on above: Performed By: #### R UBIGG #### [facility] [address] [place] [address] Dr. Kimberly Bocanegra MCH (RBC) [Entitic mass] 27.3 pg Normal 26.7-34.0 [facility] Comment on above: Performed By: #### R UBIGG #### [facility] [address] [place] [address] Dr. Kimberly Bocanegra MCHC (RBC) [Mass/Vol] 32.5 g/dL Normal 29.9-35.2 [facility] Comment on above: Performed By: #### R UBIGG #### [facility] [address] [place] [address] Dr. Kimberly Bocanegra MCV (RBC) [Entitic vol] 84.0 fL Normal 81.0-99.0 [facility] Comment on above: Performed By: #### R UBIGG #### [facility] [address] [place] [address] Dr. Kimberly Bocanegra MONO # 0.6 103/ul Normal 0.3-0.8 [facility] Comment on above: Performed By: #### R UBIGG #### [facility] [address] [place] [address] Dr. Kimberly Bocanegra Monocytes/100 WBC (Bld) 7.1 % Normal 1.7-12.0 [facility] Comment on above: Performed By: #### R UBIGG #### [facility] [address] [place] [address] Dr. Kimberly Bocanegra NEUT # 6.3 103/ul Normal 1.4-6.5 [facility] Comment on above: Performed By: #### R UBIGG #### [facility] [address] [place] [address] Dr. Kimberly Bocanegra Neutrophils/100 WBC (Bld) 72.7 % Normal 43.0-75.0 [facility] Comment on above: Performed By: #### R UBIGG #### [facility] [address] [place] [address] Dr. Kimberly Bocanegra Platelet mean volume (Bld) [Entitic vol] 10.1 fL Normal 9.5-13.5 [facility] Comment on above: Performed By: #### R UBIGG #### [facility] [address] [place] [address] Dr. Kimberly Bocanegra PLT 336 103/ul Normal 150-450 [facility] Comment on above: Performed By: #### R UBIGG #### [facility] [address] [place] [address] Dr. Kimberly Bocanegra RBC 4.50 106/ul Normal 4.20-5.40 [facility] Comment on above: Performed By: #### R UBIGG #### [facility] [address] [place] [address] Dr. Kimberly Bocanegra WBC 8.7 103/ul Normal 4.0-11.0 [facility] Comment on above: Performed By: #### R UBIGG #### [facility] [address] [place] [address] Dr. Kimberly Bocanegra ER URINE PROFILEon 2 Bilirubin Ql (U) Negative Normal NEGATIVE [facility] Comment on above: Performed By: #### R UBIGG #### [facility] [address] [place] [address] Dr. Kimberly Bocanegra Clarity (U) CLOUDY Abnormal CLEAR [facility] Comment on above: Performed By: #### R UBIGG #### [facility] [address] [place] [address] Dr. Kimberly Bocanegra Color (U) YELLOW Normal YELLOW [facility] Comment on above: Performed By: #### R UBIGG #### [facility] [address] [place] [address] Dr. Kimberly VALDIVIA A micrscopic examination will be performed if indicated. Normal [facility] Comment on above: Performed By: #### R UBIGG #### [facility] [address] [place] [address] Dr. Kimberly Bocanegra Glucose Ql (U) Negative Normal NEGATIVE [facility] Comment on above: Performed By: #### R UBIGG #### [facility] [address] [address] [address] Kimberly Bocanegra Hemoglobin Ql (U) SMALL Abnormal NEGATIVE [facility] Comment on above: Performed By: #### R UBIGG #### [facility] [address] [place] [address] Dr. Kimberly Bocanegra Ketones Ql (U) TRACE Abnormal NEGATIVE [facility] Comment on above: Performed By: #### R UBIGG #### [facility] [address] [place] [address] Dr. Kimberly Bocanegra LEUKOCYTES MODERATE Abnormal NEGATIVE [facility] Comment on above: Performed By: #### R UBIGG #### [facility] [address] [place] [address] Dr. Kimberly Bocanegra Nitrite Ql (U) Negative Normal NEGATIVE [facility] Comment on above: Performed By: #### R UBIGG #### [facility] [address] [place] [address] Dr. Kimberly Bocanegra pH (U) 6.0 [pH] Normal 5-9 [facility] Comment on above: Performed By: #### R UBIGG #### [facility] [address] [place] [address] Dr. Kimberly Bocanegra SPEC GRAVITY 1.025 Normal 1.005-<=1.025 [facility] Comment on above: Performed By: #### R UBIGG #### [facility] [address] [place] [address] Dr. Kimberly Bocanegra UA PROTEIN TRACE Normal NEGATIVE/ TRACE [facility] Comment on above: Performed By: #### R UBIGG #### [facility] [address] [place] [address] Dr. Kimberly Bocanegra UR MICRO IND INDICATED Normal [facility] Comment on above: Performed By: #### R UBIGG #### [facility] [address] [place] [address] Dr. Kimberly Bocanegra Urobilinogen Qn (U) 1.0 {Haim'U}/dL Normal 0.2 - 1. 0 [facility] Comment on above: Performed By: #### R UBIGG #### [facility] [address] [address] [address] Kimberly Bocanegra PROF CHEM 8 (BAS METB)on Anion gap [Moles/Vol] 14.2 mmol/L Normal [facility] Comment on above: Performed By: #### B MP #### [facility] [address] [address] [address] Kimberly Bocanegra Calcium [Mass/Vol] 9.2 mg/dL Normal 8.5-10.1 [facility] Comment on above: Performed By: #### B MP #### [facility] [address] [place] [address] Dr. Kimberly Bocanegra Chloride [Moles/Vol] 103 mmol/L Normal 98-107 [facility] Comment on above: Performed By: #### B MP #### [facility] [address] [place] [address] Dr. Kimberly Bocanegra CO2 [Moles/Vol] 25.3 mmol/L Normal 21.0-32.0 [facility] Comment on above: Performed By: #### B MP #### [facility] [address] [place] [address] Dr. Kimberly Bocanegra Creatinine [Mass/Vol] 0.53 mg/dL Critically low 0.55-1.02 [facility] Comment on above: Performed By: #### B MP #### [facility] [address] [address] [address] Kimberly Bocanegra EGFR-AF CHINESE >60 Normal >=60 [facility] Comment on above: Performed By: #### B MP #### [facility] [address] [address] [address] Kimberly Bocanegra EGFR-NON AF CHINESE >60 Normal >=60 [facility] Comment on above: Performed By: #### B MP #### [facility] [address] [place] [address] Dr. Kimberly Bocanegra Glucose [Mass/Vol] 91 mg/dL Normal 74-106 [facility] Comment on above: Performed By: #### B MP #### [facility] [address] [address] [address] Kimberly Bocanegra Potassium [Moles/Vol] 3.5 mmol/L Normal 3.5-5.1 [facility] Comment on above: Performed By: #### B MP #### [facility] [address] [address] [address] Kimberly Bocanegra Sodium [Moles/Vol] 139 mmol/L Normal 136-145 [facility] Comment on above: Performed By: #### B MP #### [facility] [address] [address] [address] Kimberly Bocanegra Urea nitrogen [Mass/Vol] 7.0 mg/dL Normal 7.0-18.0 [facility] Comment on above: Performed By: #### B MP #### [facility] [address] [address] [address] Kimberly Bocanegra Urea nitrogen/Creatinine [Mass ratio] 13.2 mg/mg Normal [facility] Comment on above: Performed By: #### B MP #### [facility] [address] [address] [address] Kimberly Bocanegra URINE MICROSCOPIC ONLYon BACTERIA LARGE Abnormal NONE SEEN [facility] Comment on above: Performed By: #### R UBIGG #### [facility] [address] [address] [address] Kimberly Bocanegra Bacteria identified Cx Nom (U) INDICATED Normal [facility] Comment on above: Performed By: #### R UBIGG #### [facility] [address] [address] [address] Kimberly Bocanegra CA OX CRYSTALS RARE Normal The [facility] Comment on above: Performed By: #### R UBIGG #### [facility] [address] [address] [address] Kimberly Bocanegra CAST NONE SEEN Normal NONE SEEN [facility] Comment on above: Performed By: #### R UBIGG #### [facility] [address] [address] [address] Kimberly Bocanegra Crystals LM Nom (Urine sed) SEEN Abnormal NONE SEEN [facility] Comment on above: Performed By: #### R UBIGG #### [facility] [address] [place] [address] Dr. Kimberly Bocanegra Epithelial cells LM Ql (Urine sed) MANY Abnormal NONE SEEN /RARE [facility] Comment on above: Performed By: #### R UBIGG #### [facility] [address] [place] [address] Dr. Kimberly Bocanegra MUCOUS MODERATE Abnormal NONE SEEN [facility] Comment on above: Performed By: #### R UBIGG #### [facility] [address] [place] [address] Dr. Kimberly Bocanegra RBC 2-5 Abnormal 0-2 [facility] Comment on above: Performed By: #### R UBIGG #### [facility] [address] [place] [address] Dr. Kimberly Bocanegra WBC 20-50 Abnormal NONE SEEN [facility] Comment on above: Performed By: #### R UBIGG #### [facility] [address] [place] [address] Dr. Kimberly Bocanegra JEN BOX TEST PT SEND OUTo n 05-20-2022 SENT TO REF LAB 05/20/2022 Normal [facility] Comment on above: Performed By: #### R UBIGG #### [facility] [address] [place] [address] Dr. Kimberly Bocanegra HEP B SURFACE ANTIGEN SCREEN on 05-14-2022 HBsAg Screen Negative Normal Negative [facility] Comment on above: Performed By: #### H BSANS #### [facility] [address] [place] [address] Dr. Kimberly Bocanegra HEPATITIS C VIRUS AB W/ REFL EX QUANTon 05-14-2022 HCV AB <0.1 Normal 0.0-0.9 [facility] Comment on above: Performed By: #### R UBIGG #### [facility] [address] [place] [address] Dr. Kimberly Bocanegra Interpretation: Comment Normal [facility] Comment on above: Result Comment: Nega tive Not infected with HCV, unless recent infection is suspected or other evidence exists to indicate HCV infection. Performed By: #### R UBIGG #### [facility] [address] [place] [address] Dr. Kimberly Bocanegra HIV 1 AND 2 WITH REFLEXon HIV Screen 4th Generation wRfx Non-Reactive Normal Non Reactive [facility] Comment on above: Result Comment: HIV Negative HIV-1/HIV-2 antibodies and HIV-1 p24 antigen were NOT detected. There is no laboratory evidence of HIV infection. Performed By: #### R UBIGG #### [facility] [address] [place] [address] Dr. Kimberly Bocanegra RPR QUANTon 05-14-2022 Rapid Plasma Reagin, Quant Non-Reactive Normal NonRea<1:1 [facility] Comment on above: Result Comment: Plea se Note: This test does not meet current guidelines for screening and diagnosis of syphilis. This test is intended for following treatment response in patients being treated for syphilis infection. To screen for syphilis infection, a reflex cascade that includes both RPR and a treponema-specific assay should be utilized, such as Treponema pallidum (Syphilis) Screening Dana (869517) or Rapid Plasma Reagin (RPR) Test With Reflex to Quantitative RPR and Confirmatory Treponema pallidum Antibodies ([id number]). Performed By: #### R PRQ #### [facility] [address] [place] [address] Dr. Kimberly Bocanegra RUBELLA AB IGGon 05-14-2022 Rubella Antibodies, IgG 11.20 index Normal Immune >0.99 [facility] Comment on above: Result Comment: Non- immune <0.90 Equivocal 0.90 - 0.99 Immune >0.99 Performed By: #### R UBIGG #### [facility] [address] [place] [address] Dr. Kimberly Bocanegra CBC AUTO DIFFon 05-13-2022 BASO # 0.1 103/ul Normal 0.0-0.1 [facility] Comment on above: Performed By: #### C BC #### [facility] [address] [place] [address] Dr. Kimberly Bocanegra Basophils/100 WBC (Bld) 0.6 % Normal 0.2-2.0 [facility] Comment on above: Performed By: #### C BC #### [facility] [address] [place] [address] Dr. Kimberly Bocanegra EO # 0.1 103/ul Normal 0.0-0.7 [facility] Comment on above: Performed By: #### C BC #### [facility] [address] [place] [address] Dr. Kimberly Bocanegra Eosinophils/100 WBC (Bld) 0.9 % Normal 0.9-7.0 [facility] Comment on above: Performed By: #### C BC #### [facility] [address] [place] [address] Dr. Kimberly Bocanegra Erythrocyte distribution width (RBC) [Ratio] 13.8 % Normal 11.0-15.0 [facility] Comment on above: Performed By: #### C BC #### [facility] [address] [place] [address] Dr. Kimberly Bocanegra Hematocrit (Bld) [Volume fraction] 41.5 % Normal 36.0-48.0 [facility] Comment on above: Performed By: #### C BC #### [facility] [address] [place] [address] Dr. Kimberly Bocanegra Hemoglobin (Bld) [Mass/Vol] 13.7 g/dL Normal 12.0-16.0 [facility] Comment on above: Performed By: #### C BC #### [facility] [address] [place] [address] Dr. Kimberly Bocanegra IG # 0.03 10e3/ul Normal 0.00-0.03 [facility] Comment on above: Performed By: #### C BC #### [facility] [address] [place] [address] Dr. Kimberly Bocanegra IG % 0.3 % Normal 0.0-0.5 [facility] Comment on above: Performed By: #### C BC #### [facility] [address] [place] [address] Dr. Kimberly Bocanegra LYMPH # 2.4 103/ul Normal 1.2-3.8 [facility] Comment on above: Performed By: #### C BC #### [facility] [address] [place] [address] Dr. Kimberly Bocanegra Lymphocytes/100 WBC (Bld) 23.3 % Normal 20.5-60.0 [facility] Comment on above: Performed By: #### C BC #### [facility] [address] [place] [address] Dr. Kimberly Bocanegra MANUAL DIFF REQ NO Normal [facility] Comment on above: Performed By: #### C BC #### [facility] [address] [place] [address] Dr. Kimberly Bocanegra MCH (RBC) [Entitic mass] 27.4 pg Normal 26.7-34.0 [facility] Comment on above: Performed By: #### C BC #### [facility] [address] [place] [address] Dr. Kimberly Bocanegra MCHC (RBC) [Mass/Vol] 33.0 g/dL Normal 29.9-35.2 [facility] Comment on above: Performed By: #### C BC #### [facility] [address] [place] [address] Dr. Kimberly Bocanegra MCV (RBC) [Entitic vol] 83.0 fL Normal 81.0-99.0 [facility] Comment on above: Performed By: #### C BC #### [facility] [address] [place] [address] Dr. Kimberly Bocanegra MONO # 0.4 103/ul Normal 0.3-0.8 [facility] Comment on above: Performed By: #### C BC #### [facility] [address] [place] [address] Dr. Kimberly Bocanegra Monocytes/100 WBC (Bld) 4.2 % Normal 1.7-12.0 [facility] Comment on above: Performed By: #### C BC #### [facility] [address] [place] [address] Dr. Kimberly Bocanegra NEUT # 7.4 103/ul Critically high 1.4-6.5 [facility] Comment on above: Performed By: #### C BC #### [facility] [address] [place] [address] Dr. Kimberly Bocanegra Neutrophils/100 WBC (Bld) 70.7 % Normal 43.0-75.0 [facility] Comment on above: Performed By: #### C BC #### [facility] [address] [place] [address] Dr. Kimberly Bocanegra Platelet mean volume (Bld) [Entitic vol] 10.0 fL Normal 9.5-13.5 [facility] Comment on above: Performed By: #### C BC #### [facility] [address] [place] [address] Dr. Kimberly Bocanegra PLT 414 103/ul Normal 150-450 [facility] Comment on above: Performed By: #### C BC #### [facility] [address] [place] [address] Dr. Kimberly Bocanegra RBC 5.00 106/ul Normal 4.20-5.40 [facility] Comment on above: Performed By: #### C BC #### [facility] [address] [place] [address] Dr. Kimberly Bocanegar WBC 10.4 103/ul Normal 4.0-11.0 [facility] Comment on above: Performed By: #### C BC #### [facility] [address] [place] [address] Dr. Kimberly Bocanegra CULTURE URINEon 05-13-2022 CULTURE URINE Culture Observations: LIGHT GROWTH OF MIXED GENITAL PHILIPPE. NO POTENTIAL PATHOGENS SEEN. Normal [facility] Comment on above: Performed By: #### U RCX #### [facility] [address] [place] [address] Dr. Kimberly Bocanegra GLYCOHEMOGLOBIN A1Con 2021 ADA RECOMMENDATION SEE BELOW Normal [facility] Comment on above: Result Comment: ADA RECOMMENDED LIMIT 4.0 - 6.0 ADA THERAPEUTIC TARGET < 7.0 ACTION SUGGESTED > 7.0 Performed By: #### R UBIGG #### [facility] [address] [place] [address] Dr. Kimberly Bocanegra Glucose [Mass/Vol] 108 mg/dL Normal [facility] Comment on above: Performed By: #### R UBIGG #### [facility] [address] [address] [address] Kimberly Bocanegra HbA1c (Bld) [Mass fraction] 5.4 % Normal 4.5-6.2 [facility] Comment on above: Performed By: #### R UBIGG #### [facility] [address] [address] [address] Kimberly Bocanegra TYPE AND SCREENon 05-13-2022 TYPE AND SCREEN Negative Normal [facility] Comment on above: Performed By: #### T NS #### [facility] [address] [address] [address] Kimberly Bocanegra US PREG TVon 04-19-2022 [...] ALAN CHUN Date: 2022-04-19 17:12 Normal [facility] Gynecology Office/Clinic Not george 08-18-2019 Gynecology Office/Clinic [...] 10 mg qhs for morning nausea. 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 ? [id number] [employer]. [address] [place], [place] [id number]. All rights reserved. This information is not intended as a substitute for professional medical care. Always follow your healthcare professional's instructions. Normal [facility] Vital Signs Date Time Vital Sign Value Performing Clinician Facility 09-21-2024 [id number] Body height 160.02 cm [facility] 09-21-2024 10:33-0500 Body mass index (BMI) [Ratio] 34.2 kg/m2 [facility] 09-21-2024 10:33-0500 Body temperature 98.5 [degF] [facility] 09-21-2024 10:33-0500 Body weight 87.54 kg [facility] 09-21-2024 10:33-0500 Diastolic blood pressure 55 mm[Hg] [facility] 09-21-2024 10:33-0500 Heart rate 78 /min [facility] 09-21-2024 10:33-0500 Respiratory rate 18 /min [facility] 09-21-2024 10:33-0500 SaO2% (BldA) [Mass fraction] 98 % [facility] 09-21-2024 10:33-0500 Systolic blood pressure 124 mm[Hg] [facility] 02-05-2023 11:30-0400 Body height 162.56 cm Erin Lizzette Other [facility] 02-05-2023 11:30-0400 Body mass index (BMI) [Ratio] 33.98 kg/m2 Erin Lizzette Other [facility] Other 02-05-2023 11:30-0400 Body temperature 98.8 [degF] Erin Lizzette Other [facility] Other 02-05-2023 11:30-0400 Body weight 89.81 kg Erin Lizzette Other [facility] Other 02-05-2023 11:30-0400 Diastolic blood pressure 63 mm[Hg] Erin Lizzette Other [facility] Other 02-05-2023 11:30-0400 Respiratory rate 18 /min Erin Lizzette Other [facility] Other 02-05-2023 11:30-0400 SaO2% (BldA) [Mass fraction] 100 % Erin Lizzette Other [facility] Other 02-05-2023 11:30-0400 Systolic blood pressure 108 mm[Hg] Erin Lizzette Other [facility] Other 08-15-2022 10:30-0500 Body height 162.56 cm Leslee Braswell Other [facility] Other 08-15-2022 10:30-0500 Body mass index (BMI) [Ratio] 34.67 kg/m2 Leslee Braswell Other [facility] Other 08-15-2022 10:30-0500 Body temperature 97.8 [degF] Leslee Braswell Other [facility] Other 08-15-2022 10:30-0500 Body weight 91.63 kg Leslee Braswell Other [facility] Other 08-15-2022 10:30-0500 Diastolic blood pressure 47 mm[Hg] Leslee Braswell Other [facility] Other 08-15-2022 10:30-0500 Respiratory rate 16 /min Leslee Braswell Other [facility] Other 08-15-2022 10:30-0500 SaO2% (BldA) [Mass fraction] 97 % Leslee Braswell Other [facility] Other 08-15-2022 10:30-0500 Systolic blood pressure 106 mm[Hg] Leslee Braswell Other [facility] Other 04-06-2022 14:10-0400 Body height 162.56 cm Renzo Mendieta Other [facility] Other 04-06-2022 14:10-0400 Body mass index (BMI) [Ratio] 33.3 kg/m2 Renzo Mendieta Other [facility] Other 04-06-2022 14:10-0400 Body temperature 98.5 [degF] Renzo Mendieta Other [facility] Other 04-06-2022 14:10-0400 Body weight 88 kg Renzo Mendieta Other [facility] Other 04-06-2022 14:10-0400 Diastolic blood pressure 53 mm[Hg] Renzo Mendieta Other [facility] Other 04-06-2022 14:10-0400 Respiratory rate 16 /min Renzo Mendieta Other [facility] Other 04-06-2022 14:10-0400 SaO2% (BldA) [Mass fraction] 98 % Renzo Mendieta Other [facility] Other 04-06-2022 14:10-0400 Systolic blood pressure 101 mm[Hg] Renzo Mendieta Other [facility] Other 06-21-2021 12:00-0500 Body height 162.56 cm Leslee French Other [facility] Other 06-21-2021 12:00-0500 Body mass index (BMI) [Ratio] 34.15 kg/m2 Leslee Braswell Other [facility] Other 06-21-2021 12:00-0500 Body temperature 97.3 [degF] Leslee Braswell Other [facility] Other 06-21-2021 12:00-0500 Body weight 90.27 kg Leslee Braswell Other [facility] Other 06-21-2021 12:00-0500 Diastolic blood pressure 63 mm[Hg] Leslee Braswell Other [facility] Other 06-21-2021 12:00-0500 Respiratory rate 16 /min Leslee Braswell Other [facility] Other 06-21-2021 12:00-0500 SaO2% (BldA) [Mass fraction] 97 % Leslee Braswell Other [facility] Other 06-21-2021 12:00-0500 Systolic blood pressure 102 mm[Hg] Leslee Braswell Other [facility] Other Encounters Encounter Date Encounter Type Care Provider Facility Start: 09-21-2024 End: 09-21-2024 ambulatory [facility] Work Phone: Start: 09-21-2024 End: 09-21-2024 Patient encounter procedure [facility] Work Phone: Start: 01-16-2024 End: 01-16-2024 ambulatory ALIZA Lawson [facility] Start: 02-07-2023 End: 02-07-2023 ambulatory Erin Crocker Other [facility] Other Start: 02-07-2023 Telephone encounter Erin Crocker [facility] Start: 02-05-2023 Office outpatient visit 15 minutes Erin Crocker [facility] Start: 02-05-2023 End: 02-05-2023 ambulatory Erin Crocker [email or web address] Other Start: 02-05-2023 End: 02-05-2023 Departed Referred [facility] [employer] [facility] Erin Crocker Work Phone: [facility] [place] Work Phone: Start: 12-02-2022 End: 12-04-2022 Evaluation and management of inpatient DR ARIADNA BACON . Facility:[facility] Start: 11-25-2022 End: 11-25-2022 ambulatory LESLEE BRASWELL Facility:[facility] Start: 09-04-2022 End: 09-04-2022 ambulatory JORGE KNOXEY . Facility:[facility] Start: 08-17-2022 End: 08-18-[address] ARIADNA BACON . Facility:[facility] Start: 08-15-2022 End: 08-15-2022 ambulatory Leslee Braswell Other [facility] Other Start: 08-15-2022 Office outpatient visit 25 [...] 04-06-2022 End: 04-06-2022 ambulatory Renzo Mendieta Other [facility] Other Start: 04-06-2022 Office outpatient visit 15 minutes Renzo Menideta [facility] Start: 08-15-2021 End: 08-15-2021 ambulatory Leslee Braswell Other [facility] Other Start: 08-15-2021 Telephone encounter Leslee Diane leon [facility] [employer] [employer] Start: 06-21-2021 End: 06-21-2021 ambulatory Leslee Braswell Other [facility] Other Start: 06-21-2021 Office outpatient visit 25 minutes Leslee French [facility] Start: 06-07-2021 End: 06-07-2021 ambulatory Leslee Braswell Other [facility] Other Start: 06-07-2021 Telephone encounter Leslee leon [facility] Procedures Date Procedure Procedure [...] 02-05-2023 Bacteria identified in Urine by Culture [facility] Payers Date Payer Category Payer Unknown [id number] 2.16.84 [id number] 2001 Unknown [id number] 2.16.84 [id number] 2001 Unknown [id number] 2.16.84 [id number] 2001 Unknown [id number] 2.16.84 [id number] 2001 Unknown [id number] 2.16.84 [id number] 2001 Unknown [id number] 2.16.84 [id number] 2001 Unknown [id number] 2.16.84 [id number] 2001 Unknown [id number] 2.16.84 [id number] 2001 Unknown [id number] 2.16.84 [id number] 2001 Unknown [id number] 2.16.84 [id number] 2001 Unknown [id number] 2.16.8 [id number] 1958 Self-pay 1958 Unknown [id number] [id number] Medicaid Rule Advantage [id number] Unknown [id number] 2.16.84 [id number] Unknown [id number] 2.16.84 [id number] Unknown [id number] 2.16.84 [id number] Unknown [id number] 2.16.8 [id number] Social History Date Type Detail Facility Sex Assigned At [facility] Other Start: 2000 Sex Assigned At Female F [facility] Work Phone: Start: 09-21-2024 Sex Female (finding) [facility] Evaluation note 02-05-2023 Note Date & [...] (suspected) exposure to covid-19 (ICD-10 - Z20.822) [facility] Other Evaluation note 08-15-2022 Note Date & [...] primary care provider to discuss antibiotic therapy [facility] Other Evaluation note 04-06-2022 Note Date & [...] Pt understood and agreed to treatment plan. [facility] Other History general Narrative - Reported 07-11-2020 Note Date & Type Note Facility 07-11-2020 History general N arrative - Reported Type Medical History post- depression Medical History COVID-19 07/2020 [facility] Other History general Narrative - Reported 07-11-2020 Note Date & Type Note Facility 07-11-2020 History general N arrative - Reported Type Medical History post- depression Medical History COVID-19 07/2020 Surgical History Vaginal X1 02/2020 Hospitalization History see above [facility] Other History general Narrative - Reported 07-11-2020 Note Date & Type Note Facility 07-11-2020 History general N arrative - Reported Type Medical History post- depression Medical History COVID-19 07/2020 Surgical History Vaginal X1 02/2020 Surgical History tubal ligation 01/2023 Hospitalization History see above [facility] Other Evaluation note Note Date & Type Note Facility Evaluation note No Information [facility] Other Evaluation note Note Date & Type Note Facility Evaluation note ACE*COMM [facility] Other Evaluation note Note Date & Type Note Facility Evaluation note No assessment information [facility] Work Phone: History general Narrative - Reported Note Date & Type Note Facility History general Narrative - Reported [facility] Other Summary Purpose Family History Relationship Condition Age at Onset Recorded Date/T tay father Heart disease Unknown Diabetes mellitus Unknown grandparent Heart disease Unknown grandparent Diabetes mellitus Unknown mother Diabetes mellitus Unknown Advance Directives Advance Directive Response Recorded Date/ Time Advance Directives No May 26, 2021 12:49pm Advance Directive Response Recorded Date/ Time Advance Directives No May 26, 2021 11:49am Chief Complaint and Reason for Visit Chief Complaint Nausea Chief Complaint Admit Date chills, body aches, congestion September 21, 2024 9:46am Additional Source Comments INFORMATION SOURCE (unrecogn ized section and content) DATE CREATED AUTHOR 09/10/2019 [facility] DATE CREATED AUTHOR AUTHOR'S ORGANIZ ATION 12/13/2022 [facility] DATE CREATED AUTHOR AUTHOR'S ORGANIZ ATION 02/17/2023 [facility] DATE CREATED AUTHOR AUTHOR'S ORGANIZ ATION 01/17/2024 [facility] REASON FOR VISIT (unrecogniz ed section and content) cold chills, body acheschill s, h/a, tired, body achesRASH, 7 WKS Referral Care Teams (unrecognized sec tion and content) Team Status: Inactive Member Role Status Dates SABI Camejo Attending Provider Active Team Status: Active Member Role Status Dates PHYSICIAN NO FAMILY Primary Care Provider Active Team Status: Inactive Member Role Status Dates PHYSICIAN NO FAMILY Primary Care Provider Active Start: September 21, 2024 End: September 21, 2024 Brenda Steel APRN Attending Provider Active Start: September 21, 2024 End: September 21, 2024 Goals (unrecognized section and content) Goals may [...] BE BASED ON THE PRIMARY CLINICAL RECORDS. [facility] [employer] provides no warranty or guarantee of the accuracy or completeness of information in this document.
[2024-10-18 10:08] LABS: Age Gdln ACOG Testing Note (.); IGP, rfx Aptima HPV ASCU Note (.)
== END 2024-10-11 20:51 | disposition home or self-care (01) ==
LOC: LAB 20:50
PROVIDERS: PCP Family Medicine; Visit Provider Obstetrics & Gynecology
DX: Z01.419 Encounter for gynecological examination (general) (routine) without abnormal findings (principal)
CPT/HCPCS: 88175

== ENCOUNTER 2024-11-02 12:32 | Outpatient (OUT) | payer OTHER, SELFPAY ==
[2024-11-02 12:56] LABS: Estimated Average Glucose 108 mg/dL; Glycohemoglobin A1C 5.4 % (4.5-6.2)
[2024-11-02 12:58] LABS: Basophils Absolute Auto 0.1 10^3/uL (0.0-0.1); Basophils Percent Auto 0.7 % (0.2-2.0); Eosinophils Absolute Auto 0.1 10^3/uL (0.0-0.7); Hematocrit 40.7 % (36.0-48.0); Hemoglobin 13.3 g/dL (12.0-16.0); Immature Granulocytes Abs Auto 0.01 10^3/uL (0.00-0.03); Immature Granulocytes Pct Auto 0.1 % (0.0-0.5); Lymphocytes Percent Auto 28.2 % (20.5-60.0); Mean Corpuscular HGB Conc 32.7 g/dL (29.9-35.2); Mean Corpuscular Hemoglobin 27.1 pg (26.7-34.0); Mean Corpuscular Volume 82.9 fL (81.0-99.0); Monocytes Absolute Auto 0.4 10^3/uL (0.3-0.8); Monocytes Percent Auto 5.2 % (1.7-12.0); Neutrophils Absolute Auto 4.6 10^3/uL (1.4-6.5); Neutrophils Percent Auto 64.8 % (43.0-75.0); Platelet Count 405 10^3/uL (150-450); Red Blood Count 4.91 10^6/uL (4.20-5.40); Red Cell Distribution Width 14.1 % (11.0-15.0); White Blood Count 7.1 10^3/uL (4.0-11.0)
[2024-11-02 13:22] LABS: Thyroid Stimulating Hormone 0.917 uIU/mL (0.358-3.740)
[2024-11-02 13:27] LABS: Free T4 0.83 ng/dL (0.76-1.46)
[2024-11-02 13:29] LABS: HCG Quantitative <1 mIU/mL
[2024-11-03 04:07] LABS: FSH 2.8 mIU/mL (.); Luteinizing Hormone(LH) 5.5 mIU/mL (.)
== END 2024-11-02 12:33 | disposition home or self-care (01) ==
LOC: LAB 12:32
PROVIDERS: PCP Family Medicine; Visit Provider Obstetrics & Gynecology
DX: E28.2 Polycystic ovarian syndrome (principal)
CPT/HCPCS: 36415; 82626; 82627; 83001; 83002; 83036; 84439; 84443; 84702; 85025